=== PATIENT | male | born 1985 | race Caucasian/White ===

== ENCOUNTER 2017-05-28 21:59 | Emergency (ER) | payer OTHER ==
[~2017-05-28] VITALS: Ht 182.9 cm; Wt 78.3 kg
[~2017-05-28 21:59] MED LIST: ALBUAER19 INH; CYCL10TA6 PO; MONT1TAB3 PO; MULTTAB58 PO; NAPR500T3 PO; RISP1TAB68 PO; TEST1INJ3 IM
[2017-05-28 22:03] VITALS: Ht 182.9 cm; Wt 78.3 kg
[2017-05-28] MEDS ORDERED: ALBUT/IPRATROP 3MG/0.5MG NEB 3 ML VIAL INH STA (22:13)
--- NOTE | 2017-05-28 22:22 | EMERGENCY ROOM VISIT NOTE ---
History Report prepared by Erika: Korin Rojas Under the Supervision of: Dr. Fede Ly D.O. First contact with patient: 22:10 Chief Complaint: RESPIRATORY DISTRESS Stated Complaint: ASTHMA ATTACK History of Present Illness The patient is a 31 year old male who presents to the Emergency Room with complaints of persistent SOB starting 0500 today. The patient has a history of asthma. He woke up around 0500 today with SOB. He has tried several nebulizer treatments today to no significant relief. He also ran out of his inhaler. He does not have any other symptoms. He has not been on steroids recently. Source of History: patient Onset: 0500 Position: other (global) Quality: other (SOB) Timing: other (persistent) Note: Pt has no other symptoms. Review of Systems See HPI for pertinent positives and negatives. A total of ten systems were reviewed and were otherwise negative. Past Medical & Surgical Medical Problems: (1) Asthma (2) Pituitary abnormality (3) Testosterone deficiency Family History Diabetes mellitus Hypertension Social History Smoking Status: Current Every Day Smoker Alcohol Use: occasionally Marital Status: in relationship Housing Status: lives with significant other Occupation Status: employed Current/Historical Medications Scheduled Montelukast Sodium (Singulair), 10 MG PO DAILY Multiple Vitamin (Multivitamin), 1 TAB PO DAILY Risperidone (Risperdal), 1 MG PO HS Testosterone Enanthate (Testosterone Enanthate), 1 DOSE IM Q 3 WEEKS Scheduled PRN Albuterol Inhaler (Ventolin Inhaler), 2 PUFFS INH QID PRN for Wheezing Cyclobenzaprine Hcl (Flexeril), 10 MG PO TID PRN for MUSCLE SPASMS Naproxen (Naproxen), 500 MG PO BID PRN for Pain Allergies Coded Allergies: No Known Allergies (Unverified , 06/06/15) Physical Exam Vital Signs Date Time Temp Pulse Resp B/P (MAP) Pulse Ox O2 Delivery O2 Flow Rate FiO2 05/28/17 22:03 36.7 125 22 124/78 95 Room Air Physical Exam GENERAL: Awake, alert, well-appearing, in no distress HENT: Normocephalic, atraumatic. Oropharynx unremarkable. EYES: Normal conjunctiva. Sclera non-icteric. NECK: Supple. No nuchal rigidity. FROM. No JVD. RESPIRATORY: Decreased breath sounds bilaterally. CARDIAC: Regular rate, normal rhythm. Extremities warm and well perfused. Pulses equal. ABDOMEN: Soft, non-distended. No tenderness to palpation. No rebound or guarding. No masses. RECTAL: Deferred. MUSCULOSKELETAL: Chest examination reveals no tenderness. The back is symmetrical on inspection without obvious abnormality. There is no CVA tenderness to palpation. No joint edema. LOWER EXTREMITIES: Calves are equal size bilaterally and non-tender. No edema. No discoloration. NEURO: Normal sensorium. No sensory or motor deficits noted. SKIN: No rash or jaundice noted. Medical Decision & Procedures ER Provider Diagnostic Interpretation: X ray results as stated below per my interpretation and radiologist interpretation. CHEST ONE VIEW PORTABLE CLINICAL HISTORY: sob COMPARISON STUDY: 04/23/2014 FINDINGS: The cardiac and mediastinal contours are normal. There is no evidence of focal pulmonary consolidation. There is no evidence of failure. No pleural effusions are visualized.[ IMPRESSION: No active disease in the chest. Electronically signed by: Irwin Laws M.D. 05/28/2017 10:24 PM Dictated Date/Time: 05/28/2017 10:24 PM Medications Administered Medications (Trade) Dose Ordered Sig/Alberta Route Start Time Stop Time Status Last Admin Dose Admin Albuterol/ Ipratropium (Duoneb) 3 ml NOW STAT INH 05/28/17 22:13 05/28/17 22:15 DC 05/28/17 22:20 3 ML Prednisone (PredniSONE TAB) 60 mg NOW STAT PO 05/28/17 22:13 05/28/17 22:15 DC 05/28/17 22:20 60 MG ED Course 2211: The patient was evaluated in room C10. A complete history and physical exam was performed. 2213: Prednisone 60 mg PO, Duoneb 3 ml INH. 2249: I reevaluated the patient. Discussed results and discharge instructions: he verbalized understanding and agreement. The patient is ready for discharge. Medical Decision Differential diagnoses include but are not limited to; asthma, pneumonia, bronchitis, URI, reactive airway disease. Medication Reconcilliation Current Medication List: was personally reviewed by me Blood Pressure Screening Patient's blood pressure: Normal blood pressure Blood pressure disposition: Did not require urgent referral Impression Primary Impression: Asthma Scribe Attestation The scribe's documentation has been prepared under my direction and personally reviewed by me in its entirety. I confirm that the note above accurately reflects all work, treatment, procedures, and medical decision making performed by me. Departure Information Dispostion Home / Self-Care Prescriptions Prednisone (Prednisone) 50 Mg Tab 50 MG PO DAILY for 4 Days, TAB Prov: Fede Ly, DO 05/28/17 Albuterol Sulfate (ALBUTEROL SULFATE) 1.25 Mg/3 Ml Neb 1 VIAL NEB Q6 for 15 Days, #150 ML Prov: Fede Ly, DO 05/28/17 Albuterol Hfa (VENTOLIN HFA) 200 Puffs/94702 Mcg Aers 2-4 PUFFS INH Q6H, #1 Prov: Fede Ly, DO 05/28/17 Referrals Rob Anderson III, M.D. (PCP) Patient Instructions Asthma - [facility], COPD - [facility], Croup - [facility], My [facility] Work Instructions Return To Work: 1 day Lifting Limitations: none
--- NOTE | 2017-05-28 22:26 | DIAGNOSTIC IMAGING REPORT ---
CHEST ONE VIEW PORTABLE CLINICAL HISTORY: sob COMPARISON STUDY: 04/23/2014 FINDINGS: The cardiac and mediastinal contours are normal. There is no evidence of focal pulmonary consolidation. There is no evidence of failure. No pleural effusions are visualized.[ IMPRESSION: No active disease in the chest. Electronically signed by: Irwin Laws M.D. 05/28/2017 10:24 PM Dictated Date/Time: 05/28/2017 10:24 PM
[2017-05-28] MEDS ORDERED: VNTHFA/IN INH (22:55)
[2017-05-28] MEDS ORDERED: PRED50TA PO (22:55)
[2017-05-28] MEDS ORDERED: ALBU1.257 NEB (22:55)
[2017-05-28 23:06] VITALS: BP 124/75; PULSE 94; TEMP 36.7; O2SAT 96
== END 2017-05-28 23:07 | disposition home or self-care (01) ==
LOC: C.EDB 22:01 → C.EDC 23:07
DX: J45.909 Unspecified asthma, uncomplicated (principal); F17.200 Nicotine dependence, unspecified, uncomplicated; Z79.899 Other long term (current) drug therapy; Z83.3 Family history of diabetes mellitus; Z82.49 Family history of ischemic heart disease and other diseases of the circulatory system

== ENCOUNTER 2017-08-19 15:43 | Emergency (ER) | payer OTHER ==
[~2017-08-19] VITALS: Ht 182.9 cm; Wt 80.0 kg
[~2017-08-19 15:43] MED LIST changes: +VNTHFA/IN INH
[2017-08-19 15:46] VITALS: TEMP 36.7; Ht 182.9 cm; Wt 80.0 kg
[2017-08-19] MEDS ORDERED: KETOROLAC TROMETHAMINE 60 MG/2 ML VIAL IM STA (16:02)
[2017-08-19] MEDS ORDERED: METH4PAK PO (16:05)
[2017-08-19] MEDS ORDERED: TRAM-10 PO (16:05)
[2017-08-19] MEDS ORDERED: DEXAMETHASONE **PF** INJ 10 MG/ML VIAL IM ONE (16:15)
[2017-08-19 16:33] VITALS: BP 122/83; PULSE 92; O2SAT 97
--- NOTE | 2017-08-19 22:01 | EMERGENCY ROOM VISIT NOTE ---
History First contact with patient: 15:49 Chief Complaint: BACK PAIN Stated Complaint: LOWER BACK PAIN History of Present Illness The patient is a 32 year old male, history of Klinefelter syndrome, who presents to the Emergency Room with complaints of lower back pain radiating into the right buttock and thigh. The patient reports that the pain will occasionally radiate into his calf. The patient does report a prior history of back problems. 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 He denies any recent injuries to his back. He currently denies any bladder/bowel incontinence, saddle anesthesias or profound right lower extremity weakness. He rates his discomfort a 4 out of 10. The patient reports that he left his medical assistance lapse, and is hoping to have his insurance in place within the next few weeks so he can follow-up with his PCP. Review of Systems 10 system review was performed and was negative except for pertinent positives and negatives as indicated in history of present illness Past Medical/Surgical History Medical Problems: (1) Asthma (2) Pituitary abnormality (3) Testosterone deficiency Family History Diabetes mellitus Hypertension Social History Smoking Status: Current Every Day Smoker Alcohol Use: occasionally Marital Status: in relationship Housing Status: lives with significant other Occupation Status: employed Current/Historical Medications Scheduled Albuterol Hfa (Ventolin Hfa), 2-4 PUFFS INH Q6H Methylprednisolone (Medrol Dosepak), 0 PO DAILY Montelukast Sodium (Singulair), 10 MG PO DAILY Multiple Vitamin (Multivitamin), 1 TAB PO DAILY Risperidone (Risperdal), 1 MG PO HS Testosterone Enanthate (Testosterone Enanthate), 1 DOSE IM Q 3 WEEKS Scheduled PRN Albuterol Inhaler (Ventolin Inhaler), 2 PUFFS INH QID PRN for Wheezing Cyclobenzaprine Hcl (Flexeril), 10 MG PO TID PRN for MUSCLE SPASMS Naproxen (Naproxen), 500 MG PO BID PRN for Pain Tramadol (Ultram), 1-2 TAB PO Q4H PRN for Pain Physical Exam Vital Signs Date Time Temp Pulse Resp B/P (MAP) Pulse Ox O2 Delivery O2 Flow Rate FiO2 08/19/17 16:33 92 18 122/83 97 08/19/17 15:46 36.7 91 16 127/86 94 Room Air Physical Exam CONSTITUTIONAL: Healthy and well nourished. Alert and oriented X 3 with positive affect. Patient appears in mild discomfort. HEENT: Normocephalic, atraumatic. Pupils equal, round and reactive. NECK: Full active range of motion without discomfort. RESPIRATORY: Clear to auscultation bilaterally with no wheezing, crackles, rhonchi or stridor. CARDIOVASCULAR: Regular rate and rhythm with no murmurs, rubs or gallops. GASTROINTESTINAL: Bowel sounds present in all quadrants. Soft and nontender to palpation. MUSCULOSKELETAL: Examination shows mild tenderness to palpation of the right lower lumbar paraspinous muscle. No palpable rigidity noted. He has no focal tenderness through the central lumbar spine, SI joints or sciatic notch. Negative logroll. Negative sitting straight leg raise. Pedal pulses are intact. Ankle plantar/dorsiflexion strength is 5 out of 5 and symmetric bilaterally. INTEGUMENTARY: No rash or other significant dermatologic conditions noted. NEUROLOGIC: Right lower extremity is sensory intact. Medical Decision & Procedures Medications Administered Medications (Trade) Dose Ordered Sig/Alberta Route Start Time Stop Time Status Last Admin Dose Admin Ketorolac Tromethamine (Toradol Inj) 60 mg NOW STAT IM 08/19/17 16:02 08/19/17 16:03 DC 08/19/17 16:23 60 MG Dexamethasone Sodium Phosphate (Dexamethasone Inj Pf) 10 mg NOW ONCE IM 08/19/17 16:15 08/19/17 16:16 DC 08/19/17 16:22 10 MG ED Course Patient history and physical exam were performed. Nurse's notes were reviewed. Vital signs were reviewed and were normal. The patient was administered IM Toradol and Decadron. The patient was encouraged to alternate ibuprofen and Tylenol for pain. He was provided a prescription for a Medrol Dosepak to be started tomorrow afternoon. He was also provided a prescription for Ultram as needed for breakthrough pain. The patient reports that he cannot tolerate hydrocodone or oxycodone. The patient was instructed to follow-up with his PCP for further reevaluation and management. He was instructed to return to the emergency department for any concerning symptoms consistent with cauda equina syndrome. The patient was happy with plan of care, voice understanding of all discharge instructions, and rated his discomfort a 3 out of 10 at the conclusion my exam, which was shortly after receiving his IM medications. Medical Decision [place] Drug Monitoring Program Search Results: patient reviewed within database, no issues identified Medication Reconcilliation Current Medication List: was personally reviewed by me Blood Pressure Screening Patient's blood pressure: Normal blood pressure Impression Primary Impression: Right lumbar radiculitis Departure Information Dispostion Home / Self-Care Condition GOOD Prescriptions Methylprednisolone (MEDROL DOSEPAK) 4 Mg Humberto 0 PO DAILY, #1 PKT Prov: Braydon Cleary PA 08/19/17 Tramadol (Ultram) 50 Mg Tab 1-2 TAB PO Q4H Y for Pain, #15 TAB For Initial Treatment Prov: Braydon Cleary PA 08/19/17 Referrals Rob Anderson III, M.D. (PCP) Forms HOME CARE DOCUMENTATION FORM, IMPORTANT VISIT INFORMATION Patient Instructions My [facility] Additional Instructions Try to avoid heavy lifting or sitting for long periods of time. Take Medrol Dosepak as prescribed, next dose tomorrow afternoon. Ibuprofen 800 mg and/or Tylenol 1000 mg every 8 hours. You may also alternate these medications for more effective pain relief: Ibuprofen --4 HRS--> Tylenol --4 HRS--> ibuprofen --4 HRS--> Tylenol .... Ultram if needed for worse pain. Follow-up with your family doctor as needed if symptoms persist. Return to the emergency department for any progressively worsening pain, bladder /bowel difficulties, numbness of the inner thighs/pubic region or profound right lower extremity weakness. FOR WORK: Please excuse from work today, Sunday08/19/17. If possible, please allow frequent breaks until back symptoms improve.
== END 2017-08-19 16:34 | disposition home or self-care (01) ==
LOC: C.EDB 15:44 → C.EDD 16:34
DX: M54.16 Radiculopathy, lumbar region (principal); J45.909 Unspecified asthma, uncomplicated; Q98.4 Klinefelter syndrome, unspecified; F17.200 Nicotine dependence, unspecified, uncomplicated; E23.7 Disorder of pituitary gland, unspecified; Z83.3 Family history of diabetes mellitus; Z82.49 Family history of ischemic heart disease and other diseases of the circulatory system

== ENCOUNTER 2017-10-21 17:26 | Emergency (ER) | payer OTHER ==
[~2017-10-21] VITALS: Ht 182.9 cm; Wt 73.8 kg
[~2017-10-21 17:26] MED LIST changes: +NAPR-1231 PO; -NAPR500T3 PO; +TRAM-10 PO
[2017-10-21 17:30] VITALS: BP 109/70; TEMP 36.7; Ht 182.9 cm; Wt 73.8 kg
[2017-10-21] MEDS ORDERED: VNTHFA/IN INH (17:48)
[2017-10-21 18:10] VITALS: PULSE 70; O2SAT 99
--- NOTE | 2017-10-21 20:59 | EMERGENCY ROOM VISIT NOTE ---
ED Visit Note First contact with patient: 17:35 Chief Complaint: Back pain. History of Present Illness: Mr. Gutiérrez is a 32-year-old white male who ambulates into the ED complaining of lumbar back pain. Historically patient reports she intermittently has back pain but has never been evaluated for this. 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 Since that time his pain has been constant. Currently he reports he is having bilateral lumbar spine in the paraspinous muscles which is slightly more pronounced on the left than the right. He describes his pain as a cramping sensation. He rates his discomfort 6/10. His pain is radiating inferiorly into the lower aspect of the buttocks bilaterally. His pain worsens with flexion and extension of the waist and palpation of the paraspinous muscles. He has not identified any alleviating factors related to the pain. He reports he was using some ibuprofen earlier today with minimal relief of his discomfort. He denies any associated symptoms including fevers, chills, sweats, skin eruptions, skin color changes, abdominal pain, nausea, vomiting, diarrhea, constipation, rectal bleeding, black/tarry stools, genital paresthesias, bowel/bladder dysfunction, extremity weakness/numbness/tingling. Review of Systems: As noted above in history of present illness. 8 body systems were reviewed and found to be negative as noted above. Past Medical History: Asthma. Current Medications: Albuterol, Singulair. Allergies to Medications: Patient denies. Social History: Patient is currently employed; he lives with his girlfriend and feels safe in his home environment; he admits to tobacco use but denies alcohol use. Physical Examination: Vital Signs: Date Time Temp Pulse Resp B/P (MAP) Pulse Ox O2 Delivery O2 Flow Rate FiO2 10/21/17 18:10 70 18 99 10/21/17 17:30 36.7 88 20 109/70 100 Room Air GENERAL: 32-year-old male in mild to moderate distress due to pain, nontoxic- appearing, afebrile and hemodynamically stable. NEUROLOGICAL: Awake, alert and oriented to person, place a questions appropriately and following commands. Normal gait. Good hand eye coordination. No focal motor or sensory deficits. SKIN: Warm, dry and pink. No soft tissue eruptions or trauma noted. BACK: No tenderness over the bony thoracic and lumbar spines. Moderate tenderness in the left lumbar paraspinous musculature without palpable spasm. Minimal tenderness in the right lumbar paraspinous muscles without spasm. Decreased range of motion in flexion and extension at the waist but no decrease in motion and lateral bending and twisting. Negative straight leg raise test. No CVA tenderness. THORAX: Lungs sounds are clear to auscultation and equal bilaterally with symmetrical chest wall. No wheezing, rales or rhonchi. ABDOMEN: Flat, soft and nontender. Positive bowel sounds in all quadrants. No guarding, rigidity or organomegaly. LOWER EXTREMITIES: Moves extremities well on command and with purpose. 2+ patellar and Achilles deep tendon reflexes intact and equal bilaterally. 4/5 muscle strength in all movements of the hips, knees and ankles and equal bilaterally. He was able to distinguish light sensations to all dermatomes of the lower legs and feet bilaterally. ED Course: Patient is assessed as noted above. Patient's medication list was reviewed. Patient was offered pain medication and refused. Patient was educated about today's findings and instructed on his treatment plan ; he verbalized understanding and agreement with this plan. Clinical Impression: Lumbar back sprain. Decision-Making: Alejandra my differential diagnosis I considered muscle strain, muscle spasm, disc herniation and other causes. Disposition: Patient discharged home in stable condition; prior to departure he was reassessed and subjectively reported he was feeling the same and rated his discomfort 6/10. Plan: Patient was encouraged to continue his current medications as prescribed. Patient was encouraged alternate ibuprofen and acetaminophen every 3 hours as needed for persistent pain. Patient was encouraged to use ice on the area of pain 5-6 times a day for 30 minutes and once most pain has resolved and there was stiffness consider using heat. Patient was encouraged to follow-up with primary care provider if no better in 5 -6 days. Patient was signed off of work for 2 days. Patient was encouraged return the ED for worsening/uncontrolled pain, genital paresthesias, bowel and bladder dysfunction, lower extremity weakness/numbness/ tingling, abdominal pain or any new/concerning symptoms.
== END 2017-10-21 18:19 | disposition home or self-care (01) ==
LOC: C.EDB 17:28 → C.EDD 18:19
DX: S33.5XXA Sprain of ligaments of lumbar spine, initial encounter (principal); X50.0XXA Overexertion from strenuous movement or load, initial encounter; J45.909 Unspecified asthma, uncomplicated; Z72.0 Tobacco use

== ENCOUNTER 2018-11-09 10:02 | Inpatient (IN) ==
[2018-11-09 10:38] LABS: Basophils # (auto) 0.02 K/uL (0-0.2); Basophils % (auto) 0.3 %; Eosinophils # (auto) 0.01 K/uL (0-0.5); Eosinophils % (auto) 0.1 %; Hematocrit (blood only) 42.9 % (42-52); Hemoglobin 14.9 g/dL (14.0-18.0); Immature Granulocytes # (auto) 0.02 K/uL (0.00-0.02); Immature Granulocytes % (auto) 0.3 %; Lymphocytes % (auto) 17.8 %; Mean Corpuscular Hgb Conc 34.7 g/dL (32-36); Mean Platelet Volume 9.4 fL (7.4-10.4); Monocytes # (auto) 0.71 K/uL (0.11-0.59); Monocytes % (auto) 9.7 %; Neutrophils # (auto) 5.23 K/uL (1.4-6.5); Neutrophils % (auto) 71.8 %; Platelet Count 213 K/uL (130-400); RDW Coefficient of Variation 13.1 % (11.5-14.5); RDW Standard Deviation 45.9 fL (36.4-46.3); Red Blood Count 4.47 M/uL (4.7-6.1); White Blood Count 7.29 K/uL (4.8-10.8)
[2018-11-09 10:45] LABS: Albumin Level 4.5 gm/dl (3.4-5.0); BUN Creatinine Ratio 14.1 (10-20); Calcium 9.4 mg/dl (8.5-10.1); Creatinine Clr Calc Pharmacy 107.8 ml/min; Est GFR (African American) 104.7; Est GFR (Non-African American) 90.3; Magnesium 2.3 mg/dl (1.8-2.4); Potassium 3.9 mmol/L (3.5-5.1)
[2018-11-09 10:48] LABS: Albumin Globulin Ratio 1.2 (0.9-2); Bilirubin,Total 0.7 mg/dl (0.2-1); Globulin 3.8 gm/dl (2.5-4.0); Total Protein 8.3 gm/dl (6.4-8.2)
[2018-11-09 10:51] LABS: INR 1.1 (0.9-1.1); Prothrombin Time 10.9 Seconds (9.0-12.0)
--- NOTE | 2018-11-09 11:54 | Magnetic Resonance Report ---
Brain MRA HISTORY: left facial weakness sparing forehead TECHNIQUE: 3-D [id number] MRA of the brain was performed without contrast. COMPARISON STUDY: Head CT 11/08/2018. FINDINGS: Visualized intracranial internal carotid arteries, distal vertebral arteries, and basilar a rtery are widely patent. There is no significant stenosis, occlusion, or aneurysm seen within the syed ateral ACAs, MCAs, or grocery sacker. IMPRESSION: No significant stenosis, occlusion, or aneurysm within the [place]. Electronically signed by: Marlo Woodard M.D. 11/09/2018 11:53 AM
[2018-11-09] MEDS ORDERED: GADOBUTROL 30ML VIAL IV PRN (12:25)
--- NOTE | 2018-11-09 12:39 | Magnetic Resonance Report ---
NECK CTA HISTORY: left facial weakness sparing forehead TECHNIQUE: Multiaxial CT images of the neck were performed following the intravenous administration o f contrast to evaluate the major cervical vessels. Maximum intensity projection images were also obta ined. All measurements were calculated based on NASCET criteria. A dose lowering technique was utili zed adhering to the principles of ALARA. COMPARISON STUDY: None. FINDINGS: The aortic arch and proximal great vessels are widely patent. There is no significant sten osis, occlusion, or dissection identified within the bilateral common carotid, internal carotid, or v ertebral arteries. IMPRESSION: No significant stenosis, occlusion, or dissection identified within the carotid or vertebral arteries . Electronically signed by: Marlo Woodard M.D. 11/09/2018 12:37 PM
--- NOTE | 2018-11-09 12:47 | Magnetic Resonance Report ---
Brain MRI WITH AND WITHOUT CONTRAST HISTORY: left facial weakness sparing forehead TECHNIQUE: Multiplanar multisequence MRI of the brain was performed both before and after the intrave nous administration of contrast. COMPARISON STUDY: None. FINDINGS: There are no areas of restricted diffusion to suggest acute infarction. The midline structu res are intact. Small retention cysts within the left maxillary sinus. The orbits are unremarkable. T here is a single punctate focus of T2 hyperintensity seen within the periventricular and the left lat eral lobe. There is also a 3 mm T2 hyperintense enhancing focus within the mid melanie on image 7 of the postcontrast sequences. No additional areas of abnormal enhancement identified within the brain. The mastoid air cells are clear. The ventricles and sulci are within normal limits for age. There is no mass, hematoma, midline shift. The major vascular flow-voids at the skull base are well maintained. P ostcontrast sequences show no areas of abnormal enhancement. IMPRESSION: 1. No acute infarct. 2. A 3 mm T2 hyperintense enhancing focus within the mid melanie. This is nonspecific and could represen t a focus of demyelination, a small glioma, or subacute to chronic lacunar infarct. A small capillary telangectasia could also have this appearance but is considered less likely. One month brain MRI fol low-up is recommended to evaluate for stability/resolution. Electronically signed by: Marlo Woodard M.D. 11/09/2018 12:46 PM
[2018-11-09] MEDS ORDERED: ONDANSETRON INJ 2 MG/ML 2 ML VIAL ONE (13:16)
[2018-11-09] MEDS ORDERED: ONDANSETRON INJ 2 MG/ML 2 ML VIAL IV STA (13:19)
[2018-11-09] MEDS ORDERED: SODIUM CHLORIDE 0.9% 1000ML 1,000 ML IV ONE (13:35)
[2018-11-09] MEDS ORDERED: DiphenhydrAMINE HCL 50 MG/ML VIAL IV STA (13:35)
[2018-11-09] MEDS ORDERED: PROCHLORPERAZINE 10 MG in SYRINGE 8 ML IV ONE (13:35)
[2018-11-09] MEDS ORDERED: PROCHLORPERAZINE 5 MG/ML 2 ML VIAL ONE (13:45)
[2018-11-09 14:07] LABS: Total Protein CSF 52.4 mg/dl (15-45)
[2018-11-09 14:08] LABS: Appearance CSF Clear; CSF Count Tube # 3; CSF Xanthrochromic No xanthochromia; Color CSF Colorless
[2018-11-09 14:09] LABS: Mononuclear WBC CSF 96.7 %; Polynuclear WBC CSF 3.3 %; Red Blood Cell CSF (A) 18 /uL (0-); Red Blood Cell CSF (B) 16 /uL (0-); White Blood Cell CSF (B) 320 /uL (0-5)
[2018-11-09 14:11] LABS: White Blood Cell CSF (A) 340 /uL (0-5)
[2018-11-09] MEDS ORDERED: VANCOMYCIN HCL 1,750 MG in SODIUM CHLORIDE 0.9% 500 ML IV ONE (14:16)
[2018-11-09] MEDS ORDERED: VANCOMYCIN CONSULT ACTIVE PRN ×2 (14:16→16:17)
[2018-11-09] MEDS ORDERED: cefTRIAXone SODIUM 2,000 MG in DEXTROSE 5% 50 ML IV STA (14:16)
[2018-11-09] MEDS ORDERED: DEXAMETHASONE **PF** INJ 10 MG/ML VIAL IV STA (14:27)
[2018-11-09] MEDS ORDERED: ACYCLOVIR SOD 775 MG in DEXTROSE 5% 250 ML IV STA (14:29)
[2018-11-09] MEDS ORDERED: HYDROmorphone INJ 1 MG/ML SYRINGE IV STA (15:09)
--- NOTE | 2018-11-09 15:36 | History & Physical Report ---
Date of Service November 09, 2018 Assessment & Plan (1) Meningitis: (2) Bar's palsy: (3) Severe headache: This is a 33-year-old male who has a significant past medical history of asthma who presents to [facility] ED secondary to severe headache x3 days along with left facial droop x1 day. Patient initially presented to ED on 11/08 secondary to severe headache. In ED pt CBC and BMP relatively unremarkable, except for glucose 111 and NA 135 He underwent LP + 340 wbc, total protein elevated 52.4 Gram stain +many wbc but no organism seen Viral and lyme serologies pending MRA of head/neck negative for stenosis MRI brain concerning for T2 hyperintense enhanced focus of mid melanie 3mm ddx but not limited to [place] bacterial vs viral, MS, lyme disease, Demyelinating neurologic disease, CVA, admit to PCU Continue IV antibiotics Vancomycin, Rocephin, Ampicillin and Antiviral Acyclovir until culture returns IVF LR 125ml/hr obtain blood culture, ESR, CRP Received IV dexamethasone in ED will monitor response Consult ID Consult Neurology Continue CVA work up with echocardiogram, telemetry monitoring and neuro consult (4) T2 hyperintense foci present in melanie on magnetic resonance imaging: MRI: A 3 mm T2 hyperintense enhancing focus within the mid melanie. This is nonspecific and could represent a focus of demyelination, a small glioma, or subacute to chronic lacunar infarct. A small capillary telangectasia could also have this appearance but is considered less likely. One month brain MRI follow- up is recommended to evaluate for stability/resolution. oligoclonal bands ordered for CSF analysis Neurology consulted uncertain significance at this time will need repeat imaging in 4 weeks or per neurology (5) Thrush: possible thrush pt complains of sore/burning tongue treat with nystatin and monitor (6) Asthma: no acute exacerbation continue mometasone (7) DVT prophylaxis: SCDS/TEDS Disposition: to be deteremined Follow up: PCP Dr. Anderson, pt will also need appropriate follow up with Neurology and repeat MRI Patient was seen and examined in collaboration with Dr. Whittaker, please see addendum History of Present Illness Chief Complaint: Severe LEE x 3 days; L Facial drop x 1 day. Primary Care Provider: Rob Anderson MD This is a 33-year-old male who has a significant past medical history of asthma who presents to [facility] ED secondary to severe headache x3 days along with left facial droop x1 day. Patient initially presented to ED on 11/08 secondary to severe headache. Headache described as, "worst headache of my life." Headache would come and go, located mostly left temporal region, worse with lying flat or walking, improved with IV benadryl and compazine. Never had anything like this in past. Work up yesterday essentially unremarkable; however a LP and CTA was recommended, pt refused and signed out AMA. He returns today with continued Headache along with new onset L facial drop that has since progressed to complete numbness and inability to move entire left side of face. LEE similar in nature today rated 7/10. +Photophobia, L ear tinnitus, Sweats, Chills, nausea and emesis. Last episode of emesis was yesterday morning. Denies hemetemsis. Overall has decreased appetite and temperature was elevated at ED yesterday to 37.8. Further complains of sore tongue, "I think I have a yeast infection from my inhaler." He denies any lightheaded, dizziness, neck pain/stiffness, chest pain, sob, palpitations, abdominal pain, diarrhea, change in bowel or urinary habits. No recent illness or travel, no sick contacts or tick bites. Denies any past surgical history or significant family history. He smokes 1/2 pack daily and also smokes marijuana, last used 3 days ago. Denies E ABDOULAYE use. Allergies Allergy/AdvReac Type Severity Reaction Status Date / Time No Known Allergies Allergy Verified 11/09/18 10:59 Home Medications Home Medications Medication Instructions Recorded Confirmed Type albuterol sulfate 2 puff INHALATION Q6H PRN 03/26/18 11/09/18 History montelukast [Singulair] 10 mg PO DAILY 03/26/18 11/09/18 History mometasone-formoterol [Dulera] 2 puff INHALATION Q12H 11/09/18 11/09/18 History Past Med/Surg History Medical History No significant past surgical history (Chronic) Asthma (Chronic) Back pain with sciatica (Acute) Family History Other Cerebral aneurysm Social History Preferred Language: Lithuanian Communication Ability: Effective Protection Specialist Required: No Beliefs That Will Affect Care: None marital status: Current Living Situation: Spouse Feels Safe at Home: Yes Safety Concerns: Feels Safe At This Time Smoking Status: Current some day smoker Cigarettes Per Day: 10 Hx Alcohol Use: No Hx Substance Use: Yes substance use type: marijuana Last Used Substance Other:: 1x per month Review of Systems Review of Systems: As noted per HPI, 10 systems reviewed and negative unless noted above. Physical Exam Physical Exam: Gen: ill appearing, M, lying in R lateral decub position, appears in pain, answers questions approp, conversing easily Head: Normocephalic, Atraumatic, pain to palpation b/l temporal area, +L bells palsy, Eyes: Sclera normal, no conjunctival injection, PERRLA, EOMI, +photophobia ENT: Gross hearing intact, TMs visualized and normal, normal pharynx, mucous membranes moist Neck: supple, no adenopathy, No JVD, no bruit, Resp: Clear to auscultation b/l, no wheeze, rales, rhonchi. Normal insp/exp effort, no accessory muscle use CV: Regular rate, regular rhythm, no murmur, rub, gallop, or ectopy Abd: +BS x 4, soft, nontender, nondistended Musculoskeletal: moves extremities active rom x 4, strength intact, good resident assistant strength Extremities: No edema bilaterally Skin: warm, sweaty, moist, no rash, negative turgor, cap refill < 2sec Neuro: Alert and oriented x 3, speech normal but slowed, flat mood/affect, + Cran nerve 7 deficit, [place] palsy otherwise cran nerve 2-12 intact grossly : deferred Results & Data Vital Signs (Past 12 Hours) Vital Signs Temp Pulse Pulse Resp BP BP Pulse Ox 11/09/18 15:02 37.5 C 80 20 122/67 98 11/09/18 14:12 71 18 118/68 97 11/09/18 13:36 74 18 119/60 97 11/09/18 12:31 71 18 143/85 H 98 11/09/18 10:54 82 18 130/91 99 11/09/18 10:26 96 11/09/18 10:23 96 05/18/19 10:07 36.9 C 108 H 18 133/78 98 Laboratory Results Short CBC 11/09/18 Range/Units 10:20 WBC 7.29 (4.8-10.8) K/uL Hgb 14.9 (14.0-18.0) g/dL Hct 42.9 (42-52) % Plt Count 213 (130-400) K/uL BMP 11/09/18 10:20 Sodium 135 L Potassium 3.9 Chloride 103 Carbon Dioxide 25 BUN 15 Creatinine 1.08 Glucose 111 H Calcium 9.4 Liver Function 11/09/18 Range/Units 10:20 Total Bilirubin 0.7 (0.2-1) mg/dl AST 13 L (15-37) U/L ALT 26 (12-78) U/L Alkaline Phosphatase 86 (45-117) U/L Albumin 4.5 (3.4-5.0) gm/dl 11/09/18 11/09/18 11/09/18 Range/Units 13:29 13:29 13:29 WBC (4.8-10.8) K/uL RBC (4.7-6.1) M/uL Hgb (14.0-18.0) g/dL Hct (42-52) % MCV (80-100) fL MCH (25-34) pg MCHC (32-36) g/dL RDW Std Deviation (36.4-46.3) fL RDW Coeff of [place]ike (11.5-14.5) % Plt Count (130-400) K/uL MPV (7.4-10.4) fL Immature Gran % (Auto) % Neut % (Auto) % Lymph % (Auto) % [place] % (Auto) % Eos % (Auto) % Baso % (Auto) % Immature Gran # (Auto) (0.00-0.02) K/uL Neut # (Auto) (1.4-6.5) K/uL Lymph # (Auto) (1.2-3.4) K/uL [place] # (Auto) (0.11-0.59) K/uL Eos # (Auto) (0-0.5) K/uL Baso # (Auto) (0-0.2) K/uL ESR (0-14) mm/hr PT (9.0-12.0) Seconds INR (0.9-1.1) APTT (21.0-31.0) Seconds PTT Ratio Sodium (136-145) mmol/L Potassium (3.5-5.1) mmol/L Chloride (98-107) mmol/L Carbon Dioxide (21-32) mmol/L Anion Gap (3-11) BUN (7-18) mg/dl Creatinine (0.6-1.4) mg/dl Est Cr Clr Drug Dosing ml/min Est GFR ( Amer) Est GFR (Non-Af Amer) BUN/Creatinine Ratio (10-20) Glucose (70-99) mg/dl POC Glucose (70-99) Calcium (8.5-10.1) mg/dl Magnesium (1.8-2.4) mg/dl Total Bilirubin (0.2-1) mg/dl AST (15-37) U/L ALT (12-78) U/L Alkaline Phosphatase (45-117) U/L C-Reactive Protein Total Protein (6.4-8.2) gm/dl Albumin (3.4-5.0) gm/dl Globulin (2.5-4.0) gm/dl Albumin/Globulin Ratio (0.9-2) Fld Lyme DNA (PCR) CSF Appearance CSF Color Xanthrochromic CSF WBC (0-5) /uL CSF RBC (0-) /uL CSF Cell Count Tube # CSF Mononuclear WBCs % % CSF Polynuclear WBCs % % CSF Chemistry Tube # CSF Glucose (40-70) mg/dl CSF Total Protein CSF Lyme IgG (Immblot) CSF Lyme IgG Bands Det CSF Lyme IgM (Immblot) CSF Lyme IgM Bands Det CSF West [place] IgM Ab Lyme Specimen Source Lyme IgG (Western Blot) Cancelled Pending Lyme IgG 18 kDa Band Cancelled Pending Lyme IgG 23 kDa Band Cancelled Pending Lyme IgG 28 kDa Band Cancelled Pending Lyme IgG 30 kDa Band Cancelled Pending Lyme IgG 39 kDa Band Cancelled Pending Lyme IgG 41 kDa Band Cancelled Pending Lyme IgG 45 kDa Band Cancelled Pending Lyme IgG 58 kDa Band Cancelled Pending Lyme IgG 66 kDa Band Cancelled Pending Lyme IgG 93 kDa Band Cancelled Pending Lyme IgM (Western Blot) Cancelled Pending Lyme IgM 23 kDa Band Cancelled Pending Lyme IgM 39 kDa Band Cancelled Pending Lyme IgM 41 kDa Band Cancelled Pending Enterovirus Source Enterovirus RNA RT-PCR Herpes Virus Source Pending HSV I DNA PCR Pending HSV II DNA PCR Pending Blood Type Antibody Screen 11/09/18 11/09/18 11/09/18 Range/Units 13:29 13:29 13:29 WBC (4.8-10.8) K/uL RBC (4.7-6.1) M/uL Hgb (14.0-18.0) g/dL Hct (42-52) % MCV (80-100) fL MCH (25-34) pg MCHC (32-36) g/dL RDW Std Deviation (36.4-46.3) fL RDW Coeff of Heike (11.5-14.5) % Plt Count (130-400) K/uL MPV (7.4-10.4) fL Immature Gran % (Auto) % Neut % (Auto) % Lymph % (Auto) % [place] % (Auto) % Eos % (Auto) % Baso % (Auto) % Immature Gran # (Auto) (0.00-0.02) K/uL Neut # (Auto) (1.4-6.5) K/uL Lymph # (Auto) (1.2-3.4) K/uL [place] # (Auto) (0.11-0.59) K/uL Eos # (Auto) (0-0.5) K/uL Baso # (Auto) (0-0.2) K/uL ESR (0-14) mm/hr PT (9.0-12.0) Seconds INR (0.9-1.1) APTT (21.0-31.0) Seconds PTT Ratio Sodium (136-145) mmol/L Potassium (3.5-5.1) mmol/L Chloride (98-107) mmol/L Carbon Dioxide (21-32) mmol/L Anion Gap (3-11) BUN (7-18) mg/dl Creatinine (0.6-1.4) mg/dl Est Cr Clr Drug Dosing ml/min Est GFR ( Amer) Est GFR (Non-Af Amer) BUN/Creatinine Ratio (10-20) Glucose (70-99) mg/dl POC Glucose (70-99) Calcium (8.5-10.1) mg/dl Magnesium (1.8-2.4) mg/dl Total Bilirubin (0.2-1) mg/dl AST (15-37) U/L ALT (12-78) U/L Alkaline Phosphatase (45-117) U/L C-Reactive Protein Total Protein (6.4-8.2) gm/dl Albumin (3.4-5.0) gm/dl Globulin (2.5-4.0) gm/dl Albumin/Globulin Ratio (0.9-2) Fld Lyme DNA (PCR) Cancelled CSF Appearance Clear CSF Color Colorless Xanthrochromic No xanthochromia CSF WBC 340 H* (0-5) /uL CSF RBC 18 (0-) /uL CSF Cell Count Tube # 3 CSF Mononuclear WBCs % 96.7 % CSF Polynuclear WBCs % 3.3 % CSF Chemistry Tube # 1 CSF Glucose 50 (40-70) mg/dl CSF Total Protein 52.4 H CSF Lyme IgG (Immblot) CSF Lyme IgG Bands Det CSF Lyme IgM (Immblot) CSF Lyme IgM Bands Det CSF [place] IgM Ab Lyme Specimen Source Cancelled Lyme IgG (Western Blot) Lyme IgG 18 kDa Band Lyme IgG 23 kDa Band Lyme IgG 28 kDa Band Lyme IgG 30 kDa Band Lyme IgG 39 kDa Band Lyme IgG 41 kDa Band Lyme IgG 45 kDa Band Lyme IgG 58 kDa Band Lyme IgG 66 kDa Band Lyme IgG 93 kDa Band Lyme IgM (Western Blot) Lyme IgM 23 kDa Band Lyme IgM 39 kDa Band Lyme IgM 41 kDa Band Enterovirus Source Enterovirus RNA RT-PCR Herpes Virus Source HSV I DNA PCR HSV II DNA PCR Blood Type Antibody Screen 11/09/18 11/09/18 11/09/18 Range/Units 13:29 13:29 13:29 WBC (4.8-10.8) K/uL RBC (4.7-6.1) M/uL Hgb (14.0-18.0) g/dL Hct (42-52) % MCV (80-100) fL MCH (25-34) pg MCHC (32-36) g/dL RDW Std Deviation (36.4-46.3) fL RDW Coeff of [place]ike (11.5-14.5) % Plt Count (130-400) K/uL MPV (7.4-10.4) fL Immature Gran % (Auto) % Neut % (Auto) % Lymph % (Auto) % [place] % (Auto) % Eos % (Auto) % Baso % (Auto) % Immature Gran # (Auto) (0.00-0.02) K/uL Neut # (Auto) (1.4-6.5) K/uL Lymph # (Auto) (1.2-3.4) K/uL [place] # (Auto) (0.11-0.59) K/uL Eos # (Auto) (0-0.5) K/uL Baso # (Auto) (0-0.2) K/uL ESR (0-14) mm/hr PT (9.0-12.0) Seconds INR (0.9-1.1) APTT (21.0-31.0) Seconds PTT Ratio Sodium (136-145) mmol/L Potassium (3.5-5.1) mmol/L Chloride (98-107) mmol/L Carbon Dioxide (21-32) mmol/L Anion Gap (3-11) BUN (7-18) mg/dl Creatinine (0.6-1.4) mg/dl Est Cr Clr Drug Dosing ml/min Est GFR ( Amer) Est GFR (Non-Af Amer) BUN/Creatinine Ratio (10-20) Glucose (70-99) mg/dl POC Glucose (70-99) Calcium (8.5-10.1) mg/dl Magnesium (1.8-2.4) mg/dl Total Bilirubin (0.2-1) mg/dl AST (15-37) U/L ALT (12-78) U/L Alkaline Phosphatase (45-117) U/L C-Reactive Protein Total Protein (6.4-8.2) gm/dl Albumin (3.4-5.0) gm/dl Globulin (2.5-4.0) gm/dl Albumin/Globulin Ratio (0.9-2) Fld Lyme DNA (PCR) Pending CSF Appearance CSF Color Xanthrochromic CSF WBC (0-5) /uL CSF RBC (0-) /uL CSF Cell Count Tube # CSF Mononuclear WBCs % % CSF Polynuclear WBCs % % CSF Chemistry Tube # CSF Glucose (40-70) mg/dl CSF Total Protein Cancelled CSF Lyme IgG (Immblot) Pending CSF Lyme IgG Bands Det Pending CSF Lyme IgM (Immblot) Pending CSF Lyme IgM Bands Det Pending CSF [place] IgM Ab Pending Lyme Specimen Source Pending Lyme IgG (Western Blot) Lyme IgG 18 kDa Band Lyme IgG 23 kDa Band Lyme IgG 28 kDa Band Lyme IgG 30 kDa Band Lyme IgG 39 kDa Band Lyme IgG 41 kDa Band Lyme IgG 45 kDa Band Lyme IgG 58 kDa Band Lyme IgG 66 kDa Band Lyme IgG 93 kDa Band Lyme IgM (Western Blot) Lyme IgM 23 kDa Band Lyme IgM 39 kDa Band Lyme IgM 41 kDa Band Enterovirus Source Enterovirus RNA RT-PCR Herpes Virus Source HSV I DNA PCR HSV II DNA PCR Blood Type Antibody Screen 11/09/18 11/09/18 11/09/18 Range/Units 13:29 10:40 10:31 WBC (4.8-10.8) K/uL RBC (4.7-6.1) M/uL Hgb (14.0-18.0) g/dL Hct (42-52) % MCV (80-100) fL MCH (25-34) pg MCHC (32-36) g/dL RDW Std Deviation (36.4-46.3) fL RDW Coeff of [place] (11.5-14.5) % Plt Count (130-400) K/uL MPV (7.4-10.4) fL Immature Gran % (Auto) % Neut % (Auto) % Lymph % (Auto) % [place] % (Auto) % Eos % (Auto) % Baso % (Auto) % Immature Gran # (Auto) (0.00-0.02) K/uL Neut # (Auto) (1.4-6.5) K/uL Lymph # (Auto) (1.2-3.4) K/uL [place] # (Auto) (0.11-0.59) K/uL Eos # (Auto) (0-0.5) K/uL Baso # (Auto) (0-0.2) K/uL ESR (0-14) mm/hr PT (9.0-12.0) Seconds INR (0.9-1.1) APTT (21.0-31.0) Seconds PTT Ratio Sodium (136-145) mmol/L Potassium (3.5-5.1) mmol/L Chloride (98-107) mmol/L Carbon Dioxide (21-32) mmol/L Anion Gap (3-11) BUN (7-18) mg/dl Creatinine (0.6-1.4) mg/dl Est Cr Clr Drug Dosing ml/min Est GFR ( Amer) Est GFR (Non-Af Amer) BUN/Creatinine Ratio (10-20) Glucose (70-99) mg/dl POC Glucose 126 H (70-99) Calcium (8.5-10.1) mg/dl Magnesium (1.8-2.4) mg/dl Total Bilirubin (0.2-1) mg/dl AST (15-37) U/L ALT (12-78) U/L Alkaline Phosphatase (45-117) U/L C-Reactive Protein Total Protein (6.4-8.2) gm/dl Albumin (3.4-5.0) gm/dl Globulin (2.5-4.0) gm/dl Albumin/Globulin Ratio (0.9-2) Fld Lyme DNA (PCR) CSF Appearance CSF Color Xanthrochromic CSF WBC (0-5) /uL CSF RBC (0-) /uL CSF Cell Count Tube # CSF Mononuclear WBCs % % CSF Polynuclear WBCs % % CSF Chemistry Tube # CSF Glucose (40-70) mg/dl CSF Total Protein CSF Lyme IgG (Immblot) CSF Lyme IgG Bands Det CSF Lyme IgM (Immblot) CSF Lyme IgM Bands Det CSF [place] IgM Ab Lyme Specimen Source Lyme IgG (Western Blot) Lyme IgG 18 kDa Band Lyme IgG 23 kDa Band Lyme IgG 28 kDa Band Lyme IgG 30 kDa Band Lyme IgG 39 kDa Band Lyme IgG 41 kDa Band Lyme IgG 45 kDa Band Lyme IgG 58 kDa Band Lyme IgG 66 kDa Band Lyme IgG 93 kDa Band Lyme IgM (Western Blot) Lyme IgM 23 kDa Band Lyme IgM 39 kDa Band Lyme IgM 41 kDa Band Enterovirus Source Pending Enterovirus RNA RT-PCR Pending Herpes Virus Source HSV I DNA PCR HSV II DNA PCR Blood Type O Negative Antibody Screen NEGATIVE 11/09/18 11/09/18 11/09/18 Range/Units 10:20 10:20 10:20 WBC (4.8-10.8) K/uL RBC (4.7-6.1) M/uL Hgb (14.0-18.0) g/dL Hct (42-52) % MCV (80-100) fL MCH (25-34) pg MCHC (32-36) g/dL RDW Std Deviation (36.4-46.3) fL RDW Coeff of [place] (11.5-14.5) % Plt Count (130-400) K/uL MPV (7.4-10.4) fL Immature Gran % (Auto) % Neut % (Auto) % Lymph % (Auto) % [place] % (Auto) % Eos % (Auto) % Baso % (Auto) % Immature Gran # (Auto) (0.00-0.02) K/uL Neut # (Auto) (1.4-6.5) K/uL Lymph # (Auto) (1.2-3.4) K/uL [place] # (Auto) (0.11-0.59) K/uL Eos # (Auto) (0-0.5) K/uL Baso # (Auto) (0-0.2) K/uL ESR 25 H (0-14) mm/hr PT (9.0-12.0) Seconds INR (0.9-1.1) APTT (21.0-31.0) Seconds PTT Ratio Sodium 135 L (136-145) mmol/L Potassium 3.9 (3.5-5.1) mmol/L Chloride 103 (98-107) mmol/L Carbon Dioxide 25 (21-32) mmol/L Anion Gap 7.0 (3-11) BUN 15 (7-18) mg/dl Creatinine 1.08 (0.6-1.4) mg/dl Est Cr Clr Drug Dosing 107.8 ml/min Est GFR ( Amer) 104.7 Est GFR (Non-Af Amer) 90.3 BUN/Creatinine Ratio 14.1 (10-20) Glucose 111 H (70-99) mg/dl POC Glucose (70-99) Calcium 9.4 (8.5-10.1) mg/dl Magnesium 2.3 (1.8-2.4) mg/dl Total Bilirubin 0.7 (0.2-1) mg/dl AST 13 L (15-37) U/L ALT 26 (12-78) U/L Alkaline Phosphatase 86 (45-117) U/L C-Reactive Protein Pending Total Protein 8.3 H (6.4-8.2) gm/dl Albumin 4.5 (3.4-5.0) gm/dl Globulin 3.8 (2.5-4.0) gm/dl Albumin/Globulin Ratio 1.2 (0.9-2) Fld Lyme DNA (PCR) CSF Appearance CSF Color Xanthrochromic CSF WBC (0-5) /uL CSF RBC (0-) /uL CSF Cell Count Tube # CSF Mononuclear WBCs % % CSF Polynuclear WBCs % % CSF Chemistry Tube # CSF Glucose (40-70) mg/dl CSF Total Protein CSF Lyme IgG (Immblot) CSF Lyme IgG Bands Det CSF Lyme IgM (Immblot) CSF Lyme IgM Bands Det CSF [place] IgM Ab Lyme Specimen Source Lyme IgG (Western Blot) Lyme IgG 18 kDa Band Lyme IgG 23 kDa Band Lyme IgG 28 kDa Band Lyme IgG 30 kDa Band Lyme IgG 39 kDa Band Lyme IgG 41 kDa Band Lyme IgG 45 kDa Band Lyme IgG 58 kDa Band Lyme IgG 66 kDa Band Lyme IgG 93 kDa Band Lyme IgM (Western [place]ot) Lyme IgM 23 kDa Band Lyme IgM 39 kDa Band Lyme IgM 41 kDa Band Enterovirus Source Enterovirus RNA RT-PCR Herpes Virus Source HSV I DNA PCR HSV II DNA PCR Blood Type Antibody Screen 11/09/18 11/09/18 Range/Units 10:20 10:20 WBC 7.29 (4.8-10.8) K/uL RBC 4.47 L (4.7-6.1) M/uL Hgb 14.9 (14.0-18.0) g/dL Hct 42.9 (42-52) % MCV 96.0 (80-100) fL MCH 33.3 (25-34) pg MCHC 34.7 (32-36) g/dL RDW Std Deviation 45.9 (36.4-46.3) fL RDW Coeff of [place] 13.1 (11.5-14.5) % Plt Count 213 (130-400) K/uL MPV 9.4 (7.4-10.4) fL Immature Gran % (Auto) 0.3 % Neut % (Auto) 71.8 % Lymph % (Auto) 17.8 % [place] % (Auto) 9.7 % Eos % (Auto) 0.1 % Baso % (Auto) 0.3 % Immature Gran # (Auto) 0.02 (0.00-0.02) K/uL Neut # (Auto) 5.23 (1.4-6.5) K/uL Lymph # (Auto) 1.30 (1.2-3.4) K/uL [place] # (Auto) 0.71 H (0.11-0.59) K/uL Eos # (Auto) 0.01 (0-0.5) K/uL Baso # (Auto) 0.02 (0-0.2) K/uL ESR (0-14) mm/hr PT 10.9 (9.0-12.0) Seconds INR 1.1 (0.9-1.1) APTT 28.0 (21.0-31.0) Seconds PTT Ratio 1.0 Sodium (136-145) mmol/L Potassium (3.5-5.1) mmol/L Chloride (98-107) mmol/L Carbon Dioxide (21-32) mmol/L Anion Gap (3-11) BUN (7-18) mg/dl Creatinine (0.6-1.4) mg/dl Est Cr Clr Drug Dosing ml/min Est GFR ( Amer) Est GFR (Non-Af Amer) BUN/Creatinine Ratio (10-20) Glucose (70-99) mg/dl POC Glucose (70-99) Calcium (8.5-10.1) mg/dl Magnesium (1.8-2.4) mg/dl Total Bilirubin (0.2-1) mg/dl AST (15-37) U/L ALT (12-78) U/L Alkaline Phosphatase (45-117) U/L C-Reactive Protein Total Protein (6.4-8.2) gm/dl Albumin (3.4-5.0) gm/dl Globulin (2.5-4.0) gm/dl Albumin/Globulin Ratio (0.9-2) Fld Lyme DNA (PCR) CSF Appearance CSF Color Xanthrochromic CSF WBC (0-5) /uL CSF RBC (0-) /uL CSF Cell Count Tube # CSF Mononuclear WBCs % % CSF Polynuclear WBCs % % CSF Chemistry Tube # CSF Glucose (40-70) mg/dl CSF Total Protein CSF Lyme IgG (Immblot) CSF Lyme IgG Bands Det CSF Lyme IgM (Immblot) CSF Lyme IgM Bands Det CSF [place] IgM Ab Lyme Specimen Source Lyme IgG (Western Blot) Lyme IgG 18 kDa Band Lyme IgG 23 kDa Band Lyme IgG 28 kDa Band Lyme IgG 30 kDa Band Lyme IgG 39 kDa Band Lyme IgG 41 kDa Band Lyme IgG 45 kDa Band Lyme IgG 58 kDa Band Lyme IgG 66 kDa Band Lyme IgG 93 kDa Band Lyme IgM (Western Blot) Lyme IgM 23 kDa Band Lyme IgM 39 kDa Band Lyme IgM 41 kDa Band Enterovirus Source Enterovirus RNA RT-PCR Herpes Virus Source HSV I DNA PCR HSV II DNA PCR Blood Type Antibody Screen Diagnostic Findings Brain MRI: 1. No acute infarct. 2. A 3 mm T2 hyperintense enhancing focus within the mid melanie. This is nonspecific and could represent a focus of demyelination, a small glioma, or subacute to chronic lacunar infarct. A small capillary telangectasia could also have this appearance but is considered less likely. One month brain MRI follow- up is recommended to evaluate for stability/resolution. Head/Neck MRA: IMPRESSION: No significant stenosis, occlusion, or aneurysm within the [place]. IMPRESSION: No significant stenosis, occlusion, or dissection identified within the carotid or vertebral arteries. Medications Administered Gadobutrol (Gadavist 30ml) 9 ml IV ONCE PRN PRN Reason: Interaction Checking Stop: 11/13/18 12:24 Last Admin: 11/09/18 12:25 Dose: 9 ml Documented by: [id number] Discontinued Medications Dexamethasone Sodium Phosphate (Decadron Pf) 10 mg IV NOW STA Stop: 11/09/18 14:28 Last Admin: 11/09/18 14:56 Dose: 10 mg Documented by: [id number] Diphenhydramine HCl (Benadryl) 25 mg IV NOW STA Stop: 11/09/18 13:36 Last Admin: 11/09/18 13:48 Dose: 25 mg Documented by: [id number] Hydromorphone HCl (Dilaudid) 1 mg IV NOW STA Stop: 11/09/18 15:10 Last Admin: 11/09/18 15:19 Dose: 1 mg Documented by: [id number] Prochlorperazine 10 mg/ (Syringe) 10 mls @ 5 mls/min IV ONE ONE Stop: 11/09/18 13:36 Last Admin: 11/09/18 13:49 Dose: Not Given Documented by: [id number] Sodium Chloride (Nss 1000ml) 1,000 mls @ 999 mls/hr IV .Q1H1M ONE Stop: 11/09/18 14:35 Last Infusion: 11/09/18 14:51 Dose: 0 mls/hr Documented by: [id number] Admin: 11/09/18 13:48 Dose: 999 mls/hr Documented by: [id number] Ceftriaxone Sodium 2,000 mg/ (Dextrose) 70 mls @ 100 mls/hr IV NOW STA Stop: 11/09/18 14:57 Last Admin: 11/09/18 14:56 Dose: 100 mls/hr Documented by: [id number] Acyclovir Sodium 775 mg/ (Dextrose) 265.5 mls @ 250 mls/hr IV NOW STA Stop: 11/09/18 15:32 Last Admin: 11/09/18 14:56 Dose: 250 mls/hr Documented by: [id number] Ondansetron HCl (Zofran) Confirm Administered Dose 4 mg .ROUTE .STK-MED ONE Stop: 11/09/18 13:17 Last Admin: 11/09/18 13:17 Dose: 4 mg Documented by: [id number] Ondansetron HCl (Zofran) 4 mg IV NOW STA Stop: 11/09/18 13:20 Last Admin: 11/09/18 13:20 Dose: Not Given Documented by: [id number] Prochlorperazine (Compazine) Confirm Administered Dose 10 mg .ROUTE .STK-MED ONE Stop: 11/09/18 13:46 Last Admin: 11/09/18 13:48 Dose: 10 mg Documented by: [id number] ECG Rate (beats per minute): 94 Rhythm: normal sinus Code Status & VTE Plan Code Status Full Code VTE Prophylaxis Plan VTE Prophylaxis will be ordered: Yes Supervising Physician Co-Signing Physician Notes Attending addendum: Patient seen and examined, care coordinated with Carla Schultz PA-C This is a 33-year-old male who was seen at the ER yesterday 019 with intractable headache, fever pt refused lumbar puncture, refused hospital admission, left AGAINST MEDICAL ADVICE presented to ER with worsening of headache Lumbar puncture shows CSF elevated WBC MR I of brain showed T2 hyperintense image on left melanie area suggestive of acute versus subacute infarct versus demyelinating disease Patient will be admitted to telemetry floor, started with empiric antibiotic with IV vancomycin/Rocephin, acyclovir, ampicillin: For Listeria coverage Given dose of dexamethasone in the ER ID evaluation requested Neurology consulted MRI findings discussed with neurology Neurology recommends continue with empiric antibiotic for treatment of meningitis, patient's neurological deficit/presentation possibly could be infectious origin, MRI need to be repeated in 4 to 6 weeks to see resolution of the change After meningitis/infection treated effectively Intractable headache: Possible secondary to meningitis CT head shows no evidence of intracranial hemorrhage, no acute CVA MRI of brain showed possible demyelinating intracranial disease Neuro check, pain control, neurologic input requested Report of MRI scan discussed with neurology, recommends continue treatment for meningitis, as change of the MRI scan could be secondary to infectious etiology No aspirin ordered as patient just had lumbar puncture done Repeat MRI scan in a month history of tobacco abuse/marijuana abuse: Smoking cessation counseling provided, Nicotine patch if needed, at present patient declines Ordered for urine tox screen CODE STATUS: Full code DVT prophylaxis: Low risk, SCD and teds, patient is encouraged to ambulate Disposition: Expected to be discharged home when medically stable Please refer to further documentation by Carla Morataya PA-C for discussion of other chronic issues Mavis Whittaker MD
[2018-11-09] MEDS ORDERED: AMPICILLIN 2,000 MG in SODIUM CHLOR 0.9% AD-VAN 100 ML IV SCH ×2 (16:00→18:00)
--- NOTE | 2018-11-09 16:08 | Emergency Department Note ---
Entered by Tayler Arriaga acting as a scribe for History of Present Illness General Chief complaint: Neuro Symptoms/Deficit Stated complaint: L SIDE OF FACE NUMB Source: patient and family History of Present Illness Provider complaint: left-sided facial numbness Onset (ago): hour(s) (0900 this morning) Location: face and left Quality: + other (numbness) Associated symptoms: + denies other symptoms (denies visual problems, trouble ambulating, difficulty finding words, numbness or weakness to one side of his body), + diaphoresis, + fever/chills (subjective fever) and + other (tongue pain); no headaches The patient is a 33 year old male who presents to the Emergency Department with complaints of left-sided facial numbness beginning at 0900 this morning. He also reports that he has been sweating all night. He reports that he drank soda this morning and that it fell out of his mouth as he was drinking. He looked in the mirror and noticed that he had left facial weakness. The patient states that he was seen here yesterday for a headache but states that he no longer has a headache. He states that he had a went away shortly after he was discharged. He reports that he slept from 1800 last night to 0900 this morning. He denies having numbness or weakness to his extremities. He also denies having visual problems, trouble ambulating, or difficulty finding words. The patient reports having tongue pain but states that he has a lesion. His states that the patient had a subjective fever last night. He states that his grandfather had a brain aneurysm at the age of 73. He states that he smokes. Home Medications Home Medications Medication Instructions Recorded Confirmed Type albuterol sulfate 2 puff INHALATION Q6H PRN 03/26/18 11/09/18 History montelukast [Singulair] 10 mg PO DAILY 03/26/18 11/09/18 History mometasone-formoterol [Dulera] 2 puff INHALATION Q12H 11/09/18 11/09/18 History Allergies Allergy/AdvReac Type Severity Reaction Status Date / Time No Known Allergies Allergy Verified 11/09/18 10:59 Past Med/Surg History Medical History No significant past surgical history (Chronic) Asthma (Chronic) Back pain with sciatica (Acute) Family History Other Cerebral aneurysm Social History Preferred Language: Swedish Communication Ability: Effective marital status: Feels Safe at Home: Yes Smoking Status: Current every day smoker Hx Alcohol Use: No Hx Substance Use: Yes substance use type: marijuana Last Used Substance Other:: 3 days ago Review of Systems See HPI for pertinent positives & negatives. and A total of 10 systems reviewed and were otherwise negative Physical Exam Vital Signs Vital Signs - 24 hr 11/09/18 10:07 11/09/18 10:23 11/09/18 10:26 Temperature 36.9 C Temperature Source Oral Sepsis Recent Fever Within 48 Hours No Sepsis New/Unexplained Change in Mental Status No Sepsis Action Taken by Nursing No Action Required Pulse Rate 108 H Pulse Rate [Apical] Pulse Rhythm [Apical] Pulse Strength [Apical] Respiratory Rate 18 Respiratory Effort / Characteristics Respiratory Depth Normal Respiratory Pattern Blood Pressure 133/78 Blood Pressure [Right Arm] Blood Pressure Mean 96 Blood Pressure Mean [Right Arm] Blood Pressure Position [Right Arm] Pulse Oximetry 98 96 96 Oxygen Delivery Method Room Air Room Air Room Air 11/09/18 10:54 11/09/18 12:31 11/09/18 13:36 Temperature Temperature Source Sepsis Recent Fever Within 48 Hours Sepsis New/Unexplained Change in Mental Status Sepsis Action Taken by Nursing Pulse Rate Pulse Rate [Apical] 82 71 74 Pulse Rhythm [Apical] Regular Pulse Strength [Apical] Respiratory Rate 18 18 18 Respiratory Effort / Characteristics Respiratory Depth Normal Normal Normal Respiratory Pattern Blood Pressure Blood Pressure [Right Arm] 130/91 143/85 H 119/60 Blood Pressure Mean Blood Pressure Mean [Right Arm] 104 104 79 Blood Pressure Position [Right Arm] Sitting Pulse Oximetry 99 98 97 Oxygen Delivery Method Room Air Room Air Room Air 11/09/18 14:12 11/09/18 15:02 11/09/18 15:30 Temperature 37.5 C Temperature Source Oral Sepsis Recent Fever Within 48 Hours Sepsis New/Unexplained Change in Mental Status Sepsis Action Taken by Nursing Pulse Rate Pulse Rate [Apical] 71 80 73 Pulse Rhythm [Apical] Regular Pulse Strength [Apical] Normal Respiratory Rate 18 20 16 Respiratory Effort / Characteristics Non-Labored Non-Labored Spontaneous Respiratory Depth Normal Normal Normal Respiratory Pattern Regular Blood Pressure Blood Pressure [Right Arm] 118/68 122/67 111/60 Blood Pressure Mean Blood Pressure Mean [Right Arm] 84 85 77 Blood Pressure Position [Right Arm] Pulse Oximetry 97 98 94 Oxygen Delivery Method Room Air Room Air 11/09/18 15:47 Temperature Temperature Source Sepsis Recent Fever Within 48 Hours Sepsis New/Unexplained Change in Mental Status Sepsis Action Taken by Nursing Pulse Rate 73 Pulse Rate [Apical] Pulse Rhythm [Apical] Pulse Strength [Apical] Respiratory Rate 16 Respiratory Effort / Characteristics Respiratory Depth Respiratory Pattern Blood Pressure 111/60 Blood Pressure [Right Arm] Blood Pressure Mean Blood Pressure Mean [Right Arm] Blood Pressure Position [Right Arm] Pulse Oximetry 94 Oxygen Delivery Method Room Air Constitutional: Vital signs reviewed. Eyes: Pupils are equal round reactive to light. Conjunctiva are noninjected. ENT: Pharynx is clear without erythema or exudate. Slight erythema to the left tip of the tongue. No vesicular lesions. Mucous membranes are moist. Neck supple without meningeal signs. Respiratory: Clear to auscultation bilaterally. Breath sounds are equal bilaterally. Cardiovascular: Regular rate and rhythm. No rubs or gallops. GI: Soft, nondistended and nontender. Bowel sounds are present. Musculoskeletal: No peripheral edema. No lower extremity tenderness. Integumentary: No cyanosis. No petechiae or purpura. No vesicles to the face. Neurological: The patient is awake and alert. Cranial nerves II-XII are intact, except for left facial droop sparing the forehead. Motor is 5 out of 5 all extremities. Sensation is intact to light touch all extremities. Normal speech. Psychiatric: Normal affect. Procedures Free Text Procedures Lumbar Puncture Indication: Fever and headache. Verbal consent was obtained after the risks and benefits were explained, including but not limited to headache, bleeding/clotting, scarring, infection, pain, and bone/joint/nerve damage. At this time, the risks of the procedure are less than the risks of NOT performing the procedure. A time out was taken and the correct patient and site identified. The patient was placed in the sitting position and the back was prepped with betadine and draped in the standard fashion. The L3 intervertebral space was identified, anesthetized locally with 1% lidocaine without epinephrine, and the spinal needle was inserted through the skin with the bevel parallel to the dural fibers. The needle was carefully advanced into the lumbar cistern and 4 tubes of clear CSF was obtained. The stylet was replaced and the needle was removed. A bandaid was placed and the patient was placed in the supine position. The patient tolerated the procedure w ell and there were no complications. Course 1016: The patient was evaluated in room A12B. A history and physical were performed. 1029: I discussed the patient's case with Dr. Garner-Stroke Neurology Juanita who agrees with an MR of the brain and an MRA of the head and neck. If that is negative then he would recommend doing an LP. 1300: The patient developed a headache. 1320: I performed a lumbar puncture on the patient. 1422: I updated the patient and examined him. He has less movement raising the left eyebrow. He verbalized agreement and understanding of the treatment plan. 1424: I discussed the patient's case with Carla Gray who will evaluate the patient for further management. She said to give the patient Decadron and Acyclovir. Consultations Consultation #1: Dr. Garner-Stroke Neurology Juanita Time: 10:29 Consultation #2: Carla Gray Time: 14:24 Administered Medications Gadobutrol (Gadavist 30ml) 9 ml IV ONCE PRN PRN Reason: Interaction Checking Stop: 11/13/18 12:24 Last Admin: 11/09/18 12:25 Dose: 9 ml Documented by: [id number] Discontinued Medications Dexamethasone Sodium Phosphate (Decadron Pf) 10 mg IV NOW STA Stop: 11/09/18 14:28 Last Admin: 11/09/18 14:56 Dose: 10 mg Documented by: [id number] Diphenhydramine HCl (Benadryl) 25 mg IV NOW STA Stop: 11/09/18 13:36 Last Admin: 11/09/18 13:48 Dose: 25 mg Documented by: [id number] Hydromorphone HCl (Dilaudid) 1 mg IV NOW STA Stop: 11/09/18 15:10 Last Admin: 11/09/18 15:19 Dose: 1 mg Documented by: [id number] Prochlorperazine 10 mg/ (Syringe) 10 mls @ 5 mls/min IV ONE ONE Stop: 11/09/18 13:36 Last Admin: 11/09/18 13:49 Dose: Not Given Documented by: [id number] Sodium Chloride (Nss 1000ml) 1,000 mls @ 999 mls/hr IV .Q1H1M ONE Stop: 11/09/18 14:35 Last Infusion: 11/09/18 14:51 Dose: 0 mls/hr Documented by: [id number] Admin: 11/09/18 13:48 Dose: 999 mls/hr Documented by: [id number] Ceftriaxone Sodium 2,000 mg/ (Dextrose) 70 mls @ 100 mls/hr IV NOW STA Stop: 11/09/18 14:57 Last Infusion: 11/09/18 15:40 Dose: 0 mls/hr Documented by: [id number] Admin: 11/09/18 14:56 Dose: 100 mls/hr Documented by: [id number] Acyclovir Sodium 775 mg/ (Dextrose) 265.5 mls @ 250 mls/hr IV NOW STA Stop: 11/09/18 15:32 Last Admin: 11/09/18 14:56 Dose: 250 mls/hr Documented by: [id number] Ondansetron HCl (Zofran) Confirm Administered Dose 4 mg .ROUTE .STK-MED ONE Stop: 11/09/18 13:17 Last Admin: 11/09/18 13:17 Dose: 4 mg Documented by: [id number] Ondansetron HCl (Zofran) 4 mg IV NOW STA Stop: 11/09/18 13:20 Last Admin: 11/09/18 13:20 Dose: Not Given Documented by: [id number] Prochlorperazine (Compazine) Confirm Administered Dose 10 mg .ROUTE .STK-MED ONE Stop: 11/09/18 13:46 Last Admin: 11/09/18 13:48 Dose: 10 mg Documented by: [id number] Medical Decision Making Differential Diagnosis Differentials include Bar's Palsy, cerebral aneurysm, CVA, ICH, and Lyme Disease. Medical Records Attestation: I reviewed the patient's medical records. I did perform a limited focused review of portions of the patient's old chart on the electronic medical record. The patient was seen here yesterday by myself. He left AMA refusing LP and CT angiogram for the worst headache of his left and a low grade temperature. Home Medications Current Medication List: was personally reviewed by me Laboratory Data Attestation: I reviewed the patient's lab results. Result diagrams: 11/09/18 10:20 11/09/18 10:20 Lab Results 11/09/18 11/09/18 11/09/18 Range/Units 10:20 10:20 10:20 WBC 7.29 (4.8-10.8) K/uL RBC 4.47 L (4.7-6.1) M/uL Hgb 14.9 (14.0-18.0) g/dL Hct 42.9 (42-52) % MCV 96.0 (80-100) fL MCH 33.3 (25-34) pg MCHC 34.7 (32-36) g/dL RDW Std Deviation 45.9 (36.4-46.3) fL RDW Coeff of Heike 13.1 (11.5-14.5) % Plt Count 213 (130-400) K/uL MPV 9.4 (7.4-10.4) fL Immature Gran % (Auto) 0.3 % Neut % (Auto) 71.8 % Lymph % (Auto) 17.8 % [place] % (Auto) 9.7 % Eos % (Auto) 0.1 % Baso % (Auto) 0.3 % Immature Gran # (Auto) 0.02 (0.00-0.02) K/uL Neut # (Auto) 5.23 (1.4-6.5) K/uL Lymph # (Auto) 1.30 (1.2-3.4) K/uL [place] # (Auto) 0.71 H (0.11-0.59) K/uL Eos # (Auto) 0.01 (0-0.5) K/uL Baso # (Auto) 0.02 (0-0.2) K/uL ESR (0-14) mm/hr PT 10.9 (9.0-12.0) Seconds INR 1.1 (0.9-1.1) APTT 28.0 (21.0-31.0) Seconds PTT Ratio 1.0 Sodium 135 L (136-145) mmol/L Potassium 3.9 (3.5-5.1) mmol/L Chloride 103 (98-107) mmol/L Carbon Dioxide 25 (21-32) mmol/L Anion Gap 7.0 (3-11) BUN 15 (7-18) mg/dl Creatinine 1.08 (0.6-1.4) mg/dl Est Cr Clr Drug Dosing 107.8 ml/min Est GFR ( Amer) 104.7 Est GFR (Non-Af Amer) 90.3 BUN/Creatinine Ratio 14.1 (10-20) Glucose 111 H (70-99) mg/dl POC Glucose (70-99) Calcium 9.4 (8.5-10.1) mg/dl Magnesium 2.3 (1.8-2.4) mg/dl Total Bilirubin 0.7 (0.2-1) mg/dl AST 13 L (15-37) U/L ALT 26 (12-78) U/L Alkaline Phosphatase 86 (45-117) U/L C-Reactive Protein (0-0.29) mg/dl Total Protein 8.3 H (6.4-8.2) gm/dl Albumin 4.5 (3.4-5.0) gm/dl Globulin 3.8 (2.5-4.0) gm/dl Albumin/Globulin Ratio 1.2 (0.9-2) Fld Lyme DNA (PCR) CSF Appearance CSF Color Xanthrochromic CSF WBC (0-5) /uL CSF RBC (0-) /uL CSF Cell Count Tube # CSF Mononuclear WBCs % % CSF Polynuclear WBCs % % CSF Chemistry Tube # CSF Glucose (40-70) mg/dl CSF Total Protein Lyme Specimen Source Lyme IgG (Western Blot) Lyme IgG 18 kDa Band Lyme IgG 23 kDa Band Lyme IgG 28 kDa Band Lyme IgG 30 kDa Band Lyme IgG 39 kDa Band Lyme IgG 41 kDa Band Lyme IgG 45 kDa Band Lyme IgG 58 kDa Band Lyme IgG 66 kDa Band Lyme IgG 93 kDa Band Lyme IgM (Western Blot) Lyme IgM 23 kDa Band Lyme IgM 39 kDa Band Lyme IgM 41 kDa Band Blood Type Antibody Screen 11/09/18 11/09/18 11/09/18 Range/Units 10:20 10:20 10:31 WBC (4.8-10.8) K/uL RBC (4.7-6.1) M/uL Hgb (14.0-18.0) g/dL Hct (42-52) % MCV (80-100) fL MCH (25-34) pg MCHC (32-36) g/dL RDW Std Deviation (36.4-46.3) fL RDW Coeff of Heike (11.5-14.5) % Plt Count (130-400) K/uL MPV (7.4-10.4) fL Immature Gran % (Auto) % Neut % (Auto) % Lymph % (Auto) % [place] % (Auto) % Eos % (Auto) % Baso % (Auto) % Immature Gran # (Auto) (0.00-0.02) K/uL Neut # (Auto) (1.4-6.5) K/uL Lymph # (Auto) (1.2-3.4) K/uL [place] # (Auto) (0.11-0.59) K/uL Eos # (Auto) (0-0.5) K/uL Baso # (Auto) (0-0.2) K/uL ESR 25 H (0-14) mm/hr PT (9.0-12.0) Seconds INR (0.9-1.1) APTT (21.0-31.0) Seconds PTT Ratio Sodium (136-145) mmol/L Potassium (3.5-5.1) mmol/L Chloride (98-107) mmol/L Carbon Dioxide (21-32) mmol/L Anion Gap (3-11) BUN (7-18) mg/dl Creatinine (0.6-1.4) mg/dl Est Cr Clr Drug Dosing ml/min Est GFR ( Amer) Est GFR (Non-Af Amer) BUN/Creatinine Ratio (10-20) Glucose (70-99) mg/dl POC Glucose 126 H (70-99) Calcium (8.5-10.1) mg/dl Magnesium (1.8-2.4) mg/dl Total Bilirubin (0.2-1) mg/dl AST (15-37) U/L ALT (12-78) U/L Alkaline Phosphatase (45-117) U/L C-Reactive Protein 0.68 H (0-0.29) mg/dl Total Protein (6.4-8.2) gm/dl Albumin (3.4-5.0) gm/dl Globulin (2.5-4.0) gm/dl Albumin/Globulin Ratio (0.9-2) Fld Lyme DNA (PCR) CSF Appearance CSF Color Xanthrochromic CSF WBC (0-5) /uL CSF RBC (0-) /uL CSF Cell Count Tube # CSF Mononuclear WBCs % % CSF Polynuclear WBCs % % CSF Chemistry Tube # CSF Glucose (40-70) mg/dl CSF Total Protein Lyme Specimen Source Lyme IgG (Western Blot) Lyme IgG 18 kDa Band Lyme IgG 23 kDa Band Lyme IgG 28 kDa Band Lyme IgG 30 kDa Band Lyme IgG 39 kDa Band Lyme IgG 41 kDa Band Lyme IgG 45 kDa Band Lyme IgG 58 kDa Band Lyme IgG 66 kDa Band Lyme IgG 93 kDa Band Lyme IgM (Western Blot) Lyme IgM 23 kDa Band Lyme IgM 39 kDa Band Lyme IgM 41 kDa Band Blood Type Antibody Screen 11/09/18 11/09/18 11/09/18 Range/Units 10:40 13:29 13:29 WBC (4.8-10.8) K/uL RBC (4.7-6.1) M/uL Hgb (14.0-18.0) g/dL Hct (42-52) % MCV (80-100) fL MCH (25-34) pg MCHC (32-36) g/dL RDW Std Deviation (36.4-46.3) fL RDW Coeff of Heike (11.5-14.5) % Plt Count (130-400) K/uL MPV (7.4-10.4) fL Immature Gran % (Auto) % Neut % (Auto) % Lymph % (Auto) % [place] % (Auto) % Eos % (Auto) % Baso % (Auto) % Immature Gran # (Auto) (0.00-0.02) K/uL Neut # (Auto) (1.4-6.5) K/uL Lymph # (Auto) (1.2-3.4) K/uL [place] # (Auto) (0.11-0.59) K/uL Eos # (Auto) (0-0.5) K/uL Baso # (Auto) (0-0.2) K/uL ESR (0-14) mm/hr PT (9.0-12.0) Seconds INR (0.9-1.1) APTT (21.0-31.0) Seconds PTT Ratio Sodium (136-145) mmol/L Potassium (3.5-5.1) mmol/L Chloride (98-107) mmol/L Carbon Dioxide (21-32) mmol/L Anion Gap (3-11) BUN (7-18) mg/dl Creatinine (0.6-1.4) mg/dl Est Cr Clr Drug Dosing ml/min Est GFR ( Amer) Est GFR (Non-Af Amer) BUN/Creatinine Ratio (10-20) Glucose (70-99) mg/dl POC Glucose (70-99) Calcium (8.5-10.1) mg/dl Magnesium (1.8-2.4) mg/dl Total Bilirubin (0.2-1) mg/dl AST (15-37) U/L ALT (12-78) U/L Alkaline Phosphatase (45-117) U/L C-Reactive Protein (0-0.29) mg/dl Total Protein (6.4-8.2) gm/dl Albumin (3.4-5.0) gm/dl Globulin (2.5-4.0) gm/dl Albumin/Globulin Ratio (0.9-2) Fld Lyme DNA (PCR) CSF Appearance Clear CSF Color Colorless Xanthrochromic No xanthochromia CSF WBC 340 H* (0-5) /uL CSF RBC 18 (0-) /uL CSF Cell Count Tube # 3 CSF Mononuclear WBCs % 96.7 % CSF Polynuclear WBCs % 3.3 % CSF Chemistry Tube # CSF Glucose (40-70) mg/dl CSF Total Protein Cancelled Lyme Specimen Source Lyme IgG (Western Blot) Lyme IgG 18 kDa Band Lyme IgG 23 kDa Band Lyme IgG 28 kDa Band Lyme IgG 30 kDa Band Lyme IgG 39 kDa Band Lyme IgG 41 kDa Band Lyme IgG 45 kDa Band Lyme IgG 58 kDa Band Lyme IgG 66 kDa Band Lyme IgG 93 kDa Band Lyme IgM (Western Blot) Lyme IgM 23 kDa Band Lyme IgM 39 kDa Band Lyme IgM 41 kDa Band Blood Type O Negative Antibody Screen NEGATIVE 11/09/18 11/09/18 11/09/18 Range/Units 13:29 13:29 13:29 WBC (4.8-10.8) K/uL RBC (4.7-6.1) M/uL Hgb (14.0-18.0) g/dL Hct (42-52) % MCV (80-100) fL MCH (25-34) pg MCHC (32-36) g/dL RDW Std Deviation (36.4-46.3) fL RDW Coeff of Heike (11.5-14.5) % Plt Count (130-400) K/uL MPV (7.4-10.4) fL Immature Gran % (Auto) % Neut % (Auto) % Lymph % (Auto) % [place] % (Auto) % Eos % (Auto) % Baso % (Auto) % Immature Gran # (Auto) (0.00-0.02) K/uL Neut # (Auto) (1.4-6.5) K/uL Lymph # (Auto) (1.2-3.4) K/uL [place] # (Auto) (0.11-0.59) K/uL Eos # (Auto) (0-0.5) K/uL Baso # (Auto) (0-0.2) K/uL ESR (0-14) mm/hr PT (9.0-12.0) Seconds INR (0.9-1.1) APTT (21.0-31.0) Seconds PTT Ratio Sodium (136-145) mmol/L Potassium (3.5-5.1) mmol/L Chloride (98-107) mmol/L Carbon Dioxide (21-32) mmol/L Anion Gap (3-11) BUN (7-18) mg/dl Creatinine (0.6-1.4) mg/dl Est Cr Clr Drug Dosing ml/min Est GFR ( Amer) Est GFR (Non-Af Amer) BUN/Creatinine Ratio (10-20) Glucose (70-99) mg/dl POC Glucose (70-99) Calcium (8.5-10.1) mg/dl Magnesium (1.8-2.4) mg/dl Total Bilirubin (0.2-1) mg/dl AST (15-37) U/L ALT (12-78) U/L Alkaline Phosphatase (45-117) U/L C-Reactive Protein (0-0.29) mg/dl Total Protein (6.4-8.2) gm/dl Albumin (3.4-5.0) gm/dl Globulin (2.5-4.0) gm/dl Albumin/Globulin Ratio (0.9-2) Fld Lyme DNA (PCR) Cancelled CSF Appearance CSF Color Xanthrochromic CSF WBC (0-5) /uL CSF RBC (0-) /uL CSF Cell Count Tube # CSF Mononuclear WBCs % % CSF Polynuclear WBCs % % CSF Chemistry Tube # 1 CSF Glucose 50 (40-70) mg/dl CSF Total Protein 52.4 H Lyme Specimen Source Cancelled Lyme IgG (Western Blot) Cancelled Lyme IgG 18 kDa Band Cancelled Lyme IgG 23 kDa Band Cancelled Lyme IgG 28 kDa Band Cancelled Lyme IgG 30 kDa Band Cancelled Lyme IgG 39 kDa Band Cancelled Lyme IgG 41 kDa Band Cancelled Lyme IgG 45 kDa Band Cancelled Lyme IgG 58 kDa Band Cancelled Lyme IgG 66 kDa Band Cancelled Lyme IgG 93 kDa Band Cancelled Lyme IgM (Western Blot) Cancelled Lyme IgM 23 kDa Band Cancelled Lyme IgM 39 kDa Band Cancelled Lyme IgM 41 kDa Band Cancelled Blood Type Antibody Screen Imaging Data Radiologist's Impression: Radiology results as stated below per my review and the radiologist's interpretation: NECK CTA HISTORY: left facial weakness sparing forehead TECHNIQUE: Multiaxial CT images of the neck were performed following the intravenous administration of contrast to evaluate the major cervical vessels. Maximum intensity projection images were also obtained. All measurements were calculated based on NASCET criteria. A dose lowering technique was utilized adhering to the principles of ALARA. COMPARISON STUDY: None. FINDINGS: The aortic arch and proximal great vessels are widely patent. There is no significant stenosis, occlusion, or dissection identified within the bilateral common carotid, internal carotid, or vertebral arteries. IMPRESSION: No significant stenosis, occlusion, or dissection identified within the carotid or vertebral arteries. Electronically signed by: Marlo Woodard M.D. 11/09/2018 12:37 PM Brain MRA HISTORY: left facial weakness sparing forehead TECHNIQUE: 3-D [id number] MRA of the brain was performed without contrast. COMPARISON STUDY: Head CT 11/08/2018. FINDINGS: Visualized intracranial internal carotid arteries, distal vertebral arteries, and basilar artery are widely patent. There is no significant stenosis, occlusion, or aneurysm seen within the bilateral ACAs, MCAs, or meat smoker. IMPRESSION: No significant stenosis, occlusion, or aneurysm within the [place]. Electronically signed by: Marlo Woodard M.D. 11/09/2018 11:53 AM Brain MRI WITH AND WITHOUT CONTRAST HISTORY: left facial weakness sparing forehead TECHNIQUE: Multiplanar multisequence MRI of the brain was performed both before and after the intravenous administration of contrast. COMPARISON STUDY: None. FINDINGS: There are no areas of restricted diffusion to suggest acute infarction. The midline structures are intact. Small retention cysts within the left maxillary sinus. The orbits are unremarkable. There is a single punctate focus of T2 hyperintensity seen within the periventricular and the left lateral lobe. There is also a 3 mm T2 hyperintense enhancing focus within the mid melanie on image 7 of the postcontrast sequences. No additional areas of abnormal enhancement identified within the brain. The mastoid air cells are clear. The ventricles and sulci are within normal limits for age. There is no mass, hematoma, midline shift. The major vascular flow-voids at the skull base are well maintained. Postcontrast sequences show no areas of abnormal enhancement. IMPRESSION: 1. No acute infarct. 2. A 3 mm T2 hyperintense enhancing focus within the mid melanie. This is nonspecific and could represent a focus of demyelination, a small glioma, or subacute to chronic lacunar infarct. A small capillary telangectasia could also have this appearance but is considered less likely. One month brain MRI follow- up is recommended to evaluate for stability/resolution. Electronically signed by: Marlo Woodard M.D. 11/09/2018 12:46 PM ECG Data Attestation: I personally reviewed and interpreted this ECG as follows: Indication: other (stroke symptoms) Rate (beats per minute): 94 Rhythm: normal sinus Findings: no PVC and no ST elevation Blood Pressure Blood Pressure Findings: Elevated blood pressure Blood Pressure Disposition: Referred to patients primary care provider [facility] Narrative I did evaluate the patient as noted above. The patient is presenting with left- sided facial weakness sparing the forehead. He was here yesterday and seen by myself. He refused CT angiogram, lumbar puncture and further work-up and left AMA. He states his headache is now completely gone but when he was drinking soda it dropped out of his mouth. He woke up with the symptoms. He had no recorded fever at home but stated he sweats all night long. He states now he is willing to do whatever test that I recommend including lumbar puncture. He was placed in isolation. I did order an MRI and MRA of the head and neck. I did review the images myself as well as the radiology report as described above. There is no evidence of acute infarct. There was some hyperintensity in the melanie which was of unclear etiology. They did recommend a repeat MRI in a month. IV access was established. The patient was placed on a continuous front desk monitor. I did discuss the case with the stroke neurologist at [facility] who agreed with my plan for MRI and MRA of the head and subsequent lumbar puncture if the MRI was negative. I did order and personally review the patient's 12- lead EKG as described above. There is no evidence of heart block or acute ischemia. I did order and review the patient's blood work as noted in the electronic medical record. His white count is 7.2. Once the patient returned from MRI he started developing a severe headache. He stated it started about 20 minutes prior to my reevaluation. He was given Zofran IV and I did again obtain informed consent for lumbar puncture. He did agree to the lumbar puncture. See the procedure note as described above. CSF analysis shows elevated WBCs. Protein is elevated as well. I did send testing for CSF Lyme, HSV and West Nile. I also sent a Western blot serum Lyme test. I did treat the patient with 2 g of Rocephin IV. He was also given a bolus of vancomycin IV. Additionally the patient was given IV Decadron and acyclovir. He was given Compazine and Benadryl IV for his headache. I did discuss the test results with the patient and recommended hospitalization. 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 He now has involvement of the left forehead. I did discuss the case with the hospitalist and case picker. Impression & Plan Meningitis, Bar's palsy Critical Care Time I have personally spent 35 minutes of critical care time in the direct management of this patient. This includes bedside care, interpretation of diagnostic studies, and testing, discussion with consultants, patient, and family members, and other required patient management activities. These minutes are in excess of all separately billable procedures. Discharge Plan Visit Data Chief Complaint: Neuro Symptoms/Deficit Stated Complaint: L SIDE OF FACE NUMB ED Provider: Lavell Flor Discharge Problem: Meningitis, Bar's palsy Patient Disposition: Being Evaluated by Hospitalist Discharge Instructions Interventions: ED Discharge Assessment Last Done: 11/09/18 15:47 The scribe's documentation has been prepared under my direction and personally reviewed by me in its entirety. I confirm that the note above accurately reflects all work, treatment, procedures, and medical decision making performed by me.
[2018-11-09] MEDS ORDERED: ONDANSETRON INJ 2 MG/ML 2 ML VIAL IV PRN (16:17)
[2018-11-09] MEDS ORDERED: PROCHLORPERAZINE 5 MG in SYRINGE 4 ML IV PRN (16:17)
[2018-11-09] MEDS ORDERED: ALBUTEROL HFA 8 GM INHALER INH PRN (16:17)
[2018-11-09] MEDS: LACTATED RINGER'S 1,000 ML IV SCH (17:37)
[2018-11-09] MEDS: ACETAMINOPHEN 1,000 MG/100 ML VIAL IV SCH ×2 (17:37→23:37)
[2018-11-09] MEDS: NYSTATIN SUSP 500,000 U/5 ML UDC PO SCH ×2 (18:04→19:31)
[2018-11-09] MEDS: AMPICILLIN 2,000 MG in SODIUM CHLOR 0.9% AD-VAN 100 ML IV SCH ×2 (18:52→21:58)
--- NOTE | 2018-11-09 20:27 | Pharmacy Report ---
Pharmacy Abx Initial Consult - Date of Service November 09, 2018 - Pharmacy Dosing Scope Date of Consult: 11/09/18 Consultation requested by: Dr. Whittaker Pharmacy is consulted to initiate Vancomycin IV dosing therapy, order appropriate labs and adjust drug dose/frequency. - Subjective The patient is a 33 year old M admitted on 11/09/18 15:07. - Objective Height: 6 ft Weight: 91.4 kg Vital Signs (Past 12hrs): Vital Signs Temp Pulse Pulse Resp BP BP BP 11/09/18 19:48 37.2 C 82 17 116/68 11/09/18 16:19 37.1 C 71 16 126/70 11/09/18 15:47 73 16 111/60 11/09/18 15:30 73 16 111/60 11/09/18 15:02 37.5 C 80 20 122/67 11/09/18 14:12 71 18 118/68 11/09/18 13:36 74 18 119/60 11/09/18 12:31 71 18 143/85 H 11/09/18 10:54 82 18 130/91 11/09/18 10:26 11/09/18 10:23 11/09/18 10:07 36.9 C 108 H 18 133/78 Pulse Ox 11/09/18 19:48 95 11/09/18 16:19 95 11/09/18 15:47 94 11/09/18 15:30 94 11/09/18 15:02 98 11/09/18 14:12 97 11/09/18 13:36 97 11/09/18 12:31 98 11/09/18 10:54 99 11/09/18 10:26 96 11/09/18 10:23 96 11/09/18 10:07 98 Lab Results (24hrs): Laboratory Tests (24 Hours) 11/09/18 11/09/18 11/09/18 10:20 10:20 10:20 WBC Neut # (Auto) ESR 25 H Creatinine 1.08 Est Cr Clr Drug Dosing 107.8 C-Reactive Protein 0.68 H 11/09/18 10:20 WBC 7.29 Neut # (Auto) 5.23 ESR Creatinine Est Cr Clr Drug Dosing C-Reactive Protein Micro Results: 11/09/18 14:55 Aerobic Blood Culture - Pending Blood Anaerobic Blood Culture - Pending 11/09/18 14:54 Aerobic Blood Culture - Pending Blood Anaerobic Blood Culture - Pending 11/09/18 13:29 Gram Stain - Final Cerebral Spinal Fluid CSF Culture - Pending - Assessment & Plan Assessment 33 year old M admitted with severe headache and L facial droop suspecting Meningitis. Pharmacy consulted to dose Vancomycin. Plan Vancomycin for treatment of possible Meningitis Vancomycin IV * Estimated PK Parameters: Vd 0.7 L/kg, Gregory 0.1 hr-1, t1/2 6.9 hr * Loading dose: 1750 mg (19 mg/kg) given in ED. * Maintenance dose: 1500 mg IV (16 mg/kg) every 8 hours * Goal trough level for Meningitis: 18 to 20 mcg/mL * Trough level ordered for 11/11 before dose at 0800. Pharmacy will continue to follow and will adjust dose/frequency as necessary. Thank you.
[2018-11-09 20:38] LABS: Amphetamines+Metham, Urine Neg (Neg); Barbiturates, Urine Neg (Neg); Benzodiazepine, Urine Neg (Neg); Cocaine, Urine Neg (Neg); MDMA (Ecstacy), Urine Neg (Neg); Methadone, Urine Neg (Neg); Opiate, Urine Neg (Neg); Phencyclidine, Urine Neg (Neg)
[2018-11-09] MEDS: ACYCLOVIR SOD 900 MG in DEXTROSE 5% 250 ML IV SCH (22:00)
[2018-11-09] MEDS: VANCOMYCIN HCL 1,500 MG in SODIUM CHLORIDE 0.9% 500 ML IV SCH (23:55)
[2018-11-10] MEDS: AMPICILLIN 2,000 MG in SODIUM CHLOR 0.9% AD-VAN 100 ML IV SCH ×5 (02:20→17:18)
[2018-11-10] MEDS: LACTATED RINGER'S 1,000 ML IV SCH ×2 (02:20→10:36)
[2018-11-10] MEDS: cefTRIAXone SODIUM 2,000 MG in DEXTROSE 5% 50 ML IV SCH ×2 (02:53→13:10)
[2018-11-10] MEDS: ACYCLOVIR SOD 900 MG in DEXTROSE 5% 250 ML IV SCH ×3 (05:42→22:08)
[2018-11-10 07:38] LABS: Basophils # (auto) 0.01 K/uL (0-0.2); Basophils % (auto) 0.1 %; Hematocrit (blood only) 38.6 % (42-52); Hemoglobin 13.7 g/dL (14.0-18.0); Immature Granulocytes # (auto) 0.01 K/uL (0.00-0.02); Immature Granulocytes % (auto) 0.1 %; Lymphocytes # (auto) 1.74 K/uL (1.2-3.4); Mean Corpuscular Hgb Conc 35.5 g/dL (32-36); Mean Corpuscular Volume 94.6 fL (80-100); Mean Platelet Volume 9.2 fL (7.4-10.4); Monocytes # (auto) 0.79 K/uL (0.11-0.59); Monocytes % (auto) 8.2 %; Neutrophils # (auto) 7.09 K/uL (1.4-6.5); Neutrophils % (auto) 73.6 %; Platelet Count 222 K/uL (130-400); RDW Coefficient of Variation 12.9 % (11.5-14.5); RDW Standard Deviation 44.8 fL (36.4-46.3); Red Blood Count 4.08 M/uL (4.7-6.1); White Blood Count 9.64 K/uL (4.8-10.8)
[2018-11-10 07:57] LABS: Albumin Level 3.7 gm/dl (3.4-5.0); Bilirubin Direct 0.1 mg/dl (0-0.2); Creatinine Clr Calc Pharmacy 123.8 ml/min; Est GFR (African American) 123.8; Est GFR (Non-African American) 106.9; Potassium 4.1 mmol/L (3.5-5.1)
[2018-11-10 08:00] LABS: Bilirubin,Total 0.4 mg/dl (0.2-1); Globulin 3.6 gm/dl (2.5-4.0); Total Protein 7.3 gm/dl (6.4-8.2)
[2018-11-10] MEDS: ACETAMINOPHEN 1,000 MG/100 ML VIAL IV SCH ×3 (08:07→23:35)
[2018-11-10] MEDS: VANCOMYCIN HCL 1,500 MG in SODIUM CHLORIDE 0.9% 500 ML IV SCH ×3 (08:08→23:52)
[2018-11-10] MEDS: MONTELUKAST SODIUM 10 MG TABLET PO SCH ×3 (08:08→20:06)
[2018-11-10] MEDS: NYSTATIN SUSP 500,000 U/5 ML UDC PO SCH ×4 (08:08→20:06)
[2018-11-10] MEDS ORDERED: Nursing to Pharmacy Communication ONE (09:04)
--- NOTE | 2018-11-10 11:31 | Neurology Consultation ---
Date of Consultation November 10, 2018 History of Present Illness Attending Physician: Mavis Whittaker MD Assessment / Plan: Meningitis Left Peripheral CN VII Palsy Dysarthria A 33 year old male admitted with progressive headache, stiff neck, and N/V. LP performed in the ED showed mildly elevated protein and markedly eleavted WBC concerning for viral Vs bacterial meningitis. CSF glucose was normal. MRI brain w/wo contrast showed small hypointense Lesion on T1 which enhances and a left temporal hyperintense lesion. Unclear if this is related to current infection Vs incidental finding. History devoid of features to suggest multiple sclerosis. On examine he has a peripherla CN VII palsy (álvarez's palsy). - Agree with broad spectrum antimicrobial treatment including HSV for suspected bacterial Vs Aseptic meningitis. - Please check CSF fluid for HSV, CMV, EBV, CSF lyme PCR, and CSF oligoclonal bands. - Recommend ID consult - Please check serum NMO IGG - Please check serum HIV, RPR, EBV, RIVAS, and SLE - For headache can give IV Reglan 10 mg Iv Q8hr and Benadryl 25 mg IV , If needed can give Depakote 750 mg IV Q12hr - Patient will certainly need repeat in MRI brain in 4-6 weeks after discharge. It would be ideal to have MRI brain with T2 FLAIR axial sequence now to view. Unclear if radiology can repeat limited study while inpatient with this sequence. Neurology will continue to follow closely. History of Present Illness A 33-year-old male with no significant past medical history admitted yesterday for suspected acute bacterial meningitis. He presented to the ED 2 days ago for severe headache which it progressively got worse for 2 days. It was a 10 out of 10 in severity. Also noted to have some chills but unclear if he had a fever. LP was recommended however patient left AMA. He then presented 1 day later with severe headache and left facial droop. LP was performed in the ED with an elevated protein and elevated white count suggestive of an acute bacterial meningitis. He was started on broad-spectrum antimicrobials. Neurology was notified when MRI brain showed a hyperintense lesion in the melanie. Patient is in a 6 significant past medical history. Denies any significant headaches however does report one episode of a self diagnosed migraine. He has a history of asthma. 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 Allergies Allergy/AdvReac Type Severity Reaction Status Date / Time No Known Allergies Allergy Verified 11/09/18 10:59 Home Medications Home Medications Medication Instructions Recorded Confirmed Type albuterol sulfate 2 puff INHALATION Q6H PRN 03/26/18 11/09/18 History montelukast [Singulair] 10 mg PO DAILY 03/26/18 11/09/18 History mometasone-formoterol [Dulera] 2 puff INHALATION Q12H 11/09/18 11/09/18 History Patient History Medical History No significant past surgical history (Chronic) Asthma (Chronic) Back pain with sciatica (Acute) Family History Other Cerebral aneurysm Social History Preferred Language: Serbian Communication Ability: Effective Core 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
--- NOTE | 2018-11-10 15:30 | Infectious Disease Consult ---
Date of Consultation November 10, 2018 Assessment & Plan (1) Meningitis: 33-year-old previously healthy male with meningitis symptoms associated with left facial nerve palsy, with CSF suggestive of "aseptic meningitis" or meningoencephalitis. Bacterial infection seems less likely. Negative Lyme serology speaks against this diagnosis is typically patients will be Lyme antibody positive when they present with meningitis. Would also worry about possibility of West Nile virus as well as other usual pathogens. Agree with current antibiotics for the next 24 hours pending final culture results. Additional serologies ordered. Will follow. (2) Bar's palsy: History of Present Illness Reason for Consultation: Meningitis Attending Physician: Mavis Whittaker MD History of Present Illness 33-year-old male with history of asthma but otherwise good health was well until approximately 7 days ago when he noticed a "sore" on the tip of his tongue. Subsequently developed severe headache, neck stiffness, episode of vomiting and fever. He came to the emergency department but refused lumbar puncture, but symptoms progressively worsened and he returned. Lumbar puncture revealed elevated white blood cell count of 340, 90% monocytes, with mildly elevated protein, normal glucose. Gram stain showed white cells, no organisms. Cultures are pending. Patient has been started empirically on ampicillin, vancomycin, ceftriaxone, and acyclovir. Lyme serology negative. 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 Allergies Allergy/AdvReac Type Severity Reaction Status Date / Time No Known Allergies Allergy Verified 11/09/18 10:59 Home Medications Home Medications Medication Instructions Recorded Confirmed Type albuterol sulfate 2 puff INHALATION Q6H PRN 03/26/18 11/09/18 History montelukast [Singulair] 10 mg PO DAILY 03/26/18 11/09/18 History mometasone-formoterol [Dulera] 2 puff INHALATION Q12H 11/09/18 11/09/18 History Patient History Medical History No significant past surgical history (Chronic) Asthma (Chronic) Back pain with sciatica (Acute) Family History Other Cerebral aneurysm Social History Preferred Language: Hungarian Communication Ability: Effective Director Of Optimization Required: No Beliefs That Will Affect Care: None marital status: Current Living Situation: Spouse Feels Safe at Home: Yes Safety Concerns: Feels Safe At This Time Smoking Status: Current some day smoker Cigarettes Per Day: 10 Hx Alcohol Use: No Hx Substance Use: Yes substance use type: marijuana Last Used Substance Other:: 1x per month Review of Systems Review of Systems: All systems reviewed & are unremarkable except as noted in HPI & below Physical Exam Constitutional: WD/WN, vitals as above healthy appearing; no acute distress Eyes: PERRL, conjunctivae normal, anicteric sclerae ENMT: external ear and nose normal, oropharynx normal Neck: trachea midline, no thyromegaly neck nontender Respiratory: normal respiratory effort, lungs clear to auscultation normal percussion; does not use accessory muscles Cardiovascular: Rate/Rhythm: regular rate and regular rhythm Heart Sounds: normal S1 and normal S2; no gallop, no murmur and no cardiac rub Vessels: normal peripheral pulses; no JVD Gastrointestinal (Abdomen): normal bowel sounds, soft, nontender, no hepatosplenomegaly Musculoskeletal: no cyanosis or clubbing, extremities motor strength 5/5 Head/Neck/Chest: + neck not supple (Mild stiffness) Spine: thoracic spine normal to inspection and lumbar spine normal to inspection; no cervical spinal tenderness Skin: no rashes, warm and dry normal turgor; no lesions Neurologic: patellar DTR's 2+ bilat, sensation intact awake Cranial Nerves: + abnormal facial strength (Left facial nerve palsy) Psychiatric: A+Ox3, euthymic affect Orientation: cooperative Lymphatic: no cervical or axillary lymphadenopathy no inguinal lym phadenopathy Results & Data Vital Signs (Past 12 Hours) Vital Signs Temp Pulse Resp BP Pulse Ox 11/10/18 11:07 36.7 C 79 18 108/67 98 11/10/18 07:53 36.9 C 71 18 100/61 97 11/10/18 03:45 36.5 C 60 16 112/65 95 Laboratory Results Short CBC 11/10/18 Range/Units 06:52 WBC 9.64 (4.8-10.8) K/uL Hgb 13.7 L (14.0-18.0) g/dL Hct 38.6 L (42-52) % Plt Count 222 (130-400) K/uL BMP 11/10/18 06:52 Sodium 140 Potassium 4.1 Chloride 109 H Carbon Dioxide 26 BUN 12 Creatinine 0.94 Glucose 120 H Calcium 9.0 Liver Function 11/10/18 Range/Units 06:52 Total Bilirubin 0.4 (0.2-1) mg/dl Direct Bilirubin 0.1 (0-0.2) mg/dl AST 10 L (15-37) U/L ALT 20 (12-78) U/L Alkaline Phosphatase 71 (45-117) U/L Albumin 3.7 (3.4-5.0) gm/dl Diagnostic Findings Microbiology 11/09/18 13:29 Cerebral Spinal Fluid Gram Stain - Final 11/09/18 13:29 Cerebral Spinal Fluid CSF Culture - Preliminary No growth to date. Magnetic Resonance Report Patient: ROYAL SEN Date: 11/09/18 MR#: [id number] Acct ID:[id number]: Date: 1985[facility] Zip: [place] [address] Age: 33Location: ED Sex: M Room/Bed: Att Phy: Diagnosis: L SIDE OF FACE NUMB Namrata Phy: Rob Anderson III, MDService Date: 11/09/18 Fam Phy: Interpreting Phy: Marlo Woodard MD Admit Phy: Ordering Phy: Lavell Flor MD cc: ~ Brain MRI WITH AND WITHOUT CONTRAST HISTORY: left facial weakness sparing forehead TECHNIQUE: Multiplanar multisequence MRI of the brain was performed both before and after the intravenous administration of contrast. COMPARISON STUDY: None. FINDINGS: There are no areas of restricted diffusion to suggest acute infarction. The midline structures are intact. Small retention cysts within the left maxillary sinus. The orbits are unremarkable. There is a single punctate focus of T2 hyperintensity seen within the periventricular and the left lateral lobe. There is also a 3 mm T2 hyperintense enhancing focus within the mid melanie on image 7 of the postcontrast sequences. No additional areas of abnormal enhancement identified within the brain. The mastoid air cells are clear. The ventricles and sulci are within normal limits for age. There is no mass, hematoma, midline shift. The major vascular flow-voids at the skull base are well maintained. Postcontrast sequences show no areas of abnormal enhancement. IMPRESSION: 1. No acute infarct. 2. A 3 mm T2 hyperintense enhancing focus within the mid melanie. This is nonspecific and could represent a focus of demyelination, a small glioma, or subacute to chronic lacunar infarct. A small capillary telangectasia could also have this appearance but is considered less likely. One month brain MRI follow- up is recommended to evaluate for stability/resolution. Electronically signed by: Marlo Woodard M.D. 11/09/2018 12:46 PM Dictated: 11/09/18 1237
[2018-11-10] MEDS: HYDROmorphone INJ 1 MG/ML SYRINGE IV PRN ×2 (17:17→23:13)
--- NOTE | 2018-11-10 18:14 | Hospitalist Progress Note ---
Date of Service November 10, 2018 Assessment & Plan (1) Meningitis: Possible viral/aseptic meningitis, Lyme titer negative, cultures of CSF been negative so far Presented with a headache, low-grade fever, CSF fluid WBC 340 with mild elevation of creatinine, normal glucose level Appreciate input from infectious disease Dr. Bar Recommend continue IV antibiotic until final culture report is back Present on Admission?: Yes (2) Bar's palsy: Left-sided 7th cranial nerve palsy/Bar's palsy noted, Patient complains of complete numbness of left side of face unable to raise eyebrow on the left side, unable to blink Bar's palsy possible sequela of viral meningitis Appreciate input from neurology Steroid treatment not offered, with concern of active infection/meningitis Recommend eye patch, natural tears/lubricating eye ointments to prevent dryness of eye Continue supportive care with IV fluids (3) Severe headache: Take care symptom has resolved This is a 33-year-old male who has a significant past medical history of asthma who presents to [facility] ED secondary to severe headache x3 days along with left facial droop x1 day. Patient initially presented to ED on 11/08 secondary to severe headache. In ED pt CBC and BMP relatively unremarkable, except for glucose 111 and NA 135 He underwent LP + 340 wbc, total protein elevated 52.4 Gram stain +many wbc but no organism seen Viral and lyme serologies negative MRA of head/neck negative for stenosis MRI brain concerning for T2 hyperintense enhanced focus of mid melanie 3mm ddx but not limited to Meninigits bacterial vs viral, MS, lyme disease, Demyelinating neurologic disease, CVA, Patient is continued with IV antibiotics Vancomycin, Rocephin, Ampicillin and Antiviral Acyclovir until culture returns Continue IV fluids Received IV dexamethasone in ED will monitor response Appreciate input from ID and neurology (4) T2 hyperintense foci present in melanie on magnetic resonance imaging: MRI: A 3 mm T2 hyperintense enhancing focus within the mid melanie. This is nonspecific and could represent a focus of demyelination, a small glioma, or lantigua bacute to chronic lacunar infarct. A small capillary telangectasia could also have this appearance but is considered less likely. One month brain MRI follow- up is recommended to evaluate for stability/resolution. oligoclonal bands ordered for CSF analysis report pending Neurology consulted uncertain significance at this time will need repeat imaging in 4 weeks or per neurology (5) Thrush: possible thrush pt complains of sore/burning tongue-uses inhaler at home treat with nystatin patient reports of improvement symptoms (6) Asthma: no acute exacerbation continue mometasone (7) DVT prophylaxis: SCDS/TEDS Disposition: Expect expected to be discharged home when medically stable Follow up: PCP Dr. Anderson, pt will also need appropriate follow up with Neurology and repeat MRI Subjective States the headache is getting better, numbness, on left face, unable to blink unable to raise eyebrows, typical feature of Bar's palsy Afebrile, no neurological deficit Physical Exam Constitutional: WD/WN, vitals as above no acute distress Eyes: PERRL, conjunctivae normal, anicteric sclerae Unable to raise left eyebrow, minimal movement of left eyelid, suggestive of left-sided facial nerve palsy ENMT: Right facial droop noted Neck: trachea midline, no thyromegaly Respiratory: normal respiratory effort, lungs clear to auscultation Cardiovascular: RRR, no murmur, no edema Gastrointestinal (Abdomen): normal bowel sounds, soft, nontender, no hepatosplenomegaly Musculoskeletal: no cyanosis or clubbing, extremities motor strength 5/5 Skin: no rashes, warm and dry Neurologic: patellar DTR's 2+ bilat, sensation intact Psychiatric: A+Ox3, euthymic affect Results & Data Vital Signs (Past 12 Hours) Vital Signs Temp Pulse Resp BP Pulse Ox 11/10/18 15:27 37.1 C 68 20 109/71 96 11/10/18 11:07 36.7 C 79 18 108/67 98 11/10/18 07:53 36.9 C 71 18 100/61 97
[2018-11-10] MEDS: ARTIFICIAL TEARS OP SCH ×2 (20:10→23:39)
[2018-11-11] MEDS: cefTRIAXone SODIUM 2,000 MG in DEXTROSE 5% 50 ML IV SCH ×2 (02:26→13:06)
[2018-11-11] MEDS: ARTIFICIAL TEARS OP SCH ×6 (03:12→23:25)
[2018-11-11] MEDS: ACYCLOVIR SOD 900 MG in DEXTROSE 5% 250 ML IV SCH ×3 (06:28→21:55)
[2018-11-11] MEDS ORDERED: VANCOMYCIN TROUGH ONE (07:30)
[2018-11-11] MEDS: NYSTATIN SUSP 500,000 U/5 ML UDC PO SCH ×4 (07:49→21:46)
[2018-11-11] MEDS: HYDROmorphone INJ 1 MG/ML SYRINGE IV PRN ×2 (07:49→23:25)
[2018-11-11] MEDS: VANCOMYCIN HCL 1,500 MG in SODIUM CHLORIDE 0.9% 500 ML IV SCH ×3 (07:50→23:24)
[2018-11-11 08:06] LABS: Creatinine Clr Calc Pharmacy 126.5 ml/min; Est GFR (African American) 127.1; Est GFR (Non-African American) 109.7
[2018-11-11] MEDS: ACETAMINOPHEN 1,000 MG/100 ML VIAL IV SCH ×3 (08:38→23:24)
--- NOTE | 2018-11-11 08:45 | Pharmacy Report ---
Pharmacy Abx Dose Short Note - Date of Service November 11, 2018 - Assessment & Plan Assessment 33 year old M receiving vancomycin for treatment of possible meningitis. ID is following the patient. Day # 3 of antimicrobial therapy. Plan Vancomycin * Trough level came back therapeutic today at 16.9 mcg/ml (goal 15-20 mcg/ml) * Scr remains stable, CrCl >100 ml/min - will continue same dosing regimen of vancomycin for now * Preliminary cultures are no growth at this time, awaiting final cultures * Lyme and West Nile studies also pending at this time - will continue to follow Pharmacy will continue to follow and will adjust dose/frequency as necessary. Thank you.
--- NOTE | 2018-11-11 15:13 | Neurology Progress Note ---
Date of Service November 11, 2018 Assessment & Plan (1) Severe headache: 1. currently headache is well controlled 2. left eye currently unable to keep closed, eye gtts during the day and would place eye ointment at night with eye patch 3. see Dr Cheng note for previous recommendations 4. ID- continue to follow for further recommendations 5. ophthalmology exam as outpatient for evaluation of retina 6. will continue to follow peripherally call with questions as needed. (2) Meningitis: (3) Bar's palsy: Supervising Physician Co-Signing Physician Notes I have seen and discussed above patient with Dr Franklin Cheng. Patient was seen and examined. Family at bedside. Denies headache currently. Denies any new symptoms. On examine has moderate left peripheral facial droop. Mild dysarthria. CSF studies suggestive of aseptic or viral meningitis. CSF HSV and lyme pending. Agree with discontinuing antibiotics. Would continue Acyclovir for now until HSV PCR results. Eye patch. I would start Prednisone 60 mg x5 days for left bar's palsy if NOT contraindicated from ID standpoint. Otherwise will plan to repeat MRI brain in 1-month and follow up with myself after repeat MRI imaging. Will continue to follow remotely. Lizeth Orourke is a 33 year old male who has a PMH of asthma who presents to [facility] ED secondary to severe headache x3 days along with left facial droop x1 day. He presented to ED on 11/08 secondary to severe headache. Headache described as, "worst headache of my life." Headache would come and go, located mostly left temporal region, worse with lying flat or walking, improved with IV benadryl and compazine. Never had anything like this in past. Work up yesterday essentially unremarkable; however a LP and CTA was recommended, pt refused and signed out AMA. He returns today with continued Headache along with new onset L facial drop that has since progressed to complete numbness and inability to move entire left side of face. LEE similar in nature today rated 7/10. +Photophobia, L ear tinnitus, Sweats, Chills, nausea and emesis. Last episode of emesis was yesterday morning. Denies hemetemsis. Overall has decreased appetite and temperature was elevated at ED yesterday to 37.8. Further complains of sore tongue, "I think I have a yeast infection from my inhaler." He smokes 1/2 pack daily and also smokes marijuana, last used 3 days ago. Denies ETOH use. 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
--- NOTE | 2018-11-11 16:12 | Infectious Disease Progress Nt ---
Date of Service November 11, 2018 Assessment & Plan (1) Meningitis: 33-year-old previously healthy male with meningitis symptoms associated with left facial nerve palsy, with CSF suggestive of "aseptic meningitis" or meningoencephalitis. Bacterial infection seems less likely. Negative Lyme sero logy speaks against this diagnosis is typically patients will be Lyme antibody positive when they present with meningitis. Would also worry about possibility of West Nile virus as well as other usual pathogens. Given negative cultures, would recommend discontinuation of antibiotics. Will discuss with all involved. (2) Bar's palsy: Subjective In follow-up for meningitis and facial nerve palsy. Patient feeling somewhat better, headache has improved. Remains afebrile. Cultures remain negative. Review of Systems Review of Systems: All systems reviewed & are unremarkable except as noted in HPI & below Physical Exam Constitutional: WD/WN, vitals as above healthy appearing; no acute distress Eyes: PERRL, conjunctivae normal, anicteric sclerae ENMT: external ear and nose normal, oropharynx normal Neck: trachea midline, no thyromegaly neck nontender Respiratory: normal respiratory effort, lungs clear to auscultation normal percussion; does not use accessory muscles Cardiovascular: Rate/Rhythm: regular rate and regular rhythm Heart Sounds: normal S1 and normal S2; no gallop, no murmur and no cardiac rub Vessels: normal peripheral pulses; no JVD Gastrointestinal (Abdomen): normal bowel sounds, soft, nontender, no hepatosplenomegaly Musculoskeletal: no cyanosis or clubbing, extremities motor strength 5/5 Head/Neck/Chest: + neck not supple (Mild stiffness) Spine: thoracic spine normal to inspection and lumbar spine normal to inspection; no cervical spinal tenderness Skin: no rashes, warm and dry normal turgor; no lesions Neurologic: patellar DTR's 2+ bilat, sensation intact awake Cranial Nerves: + abnormal facial strength (Left facial nerve palsy) Psychiatric: A+Ox3, euthymic affect Orientation: cooperative Lymphatic: no cervical or axillary lymphadenopathy no inguinal lymphadenopathy Results & Data Vital Signs (Past 12 Hours) Vital Signs Temp Pulse Resp BP Pulse Ox 11/11/18 15:20 36.8 C 72 16 118/67 97 11/11/18 07:00 36.6 C 75 18 98/59 L 97 Laboratory Results BMP 11/11/18 07:20 Creatinine 0.92 Diagnostic Findings Microbiology 11/09/18 13:29 Cerebral Spinal Fluid Gram Stain - Final 11/09/18 13:29 Cerebral Spinal Fluid CSF Culture - Final No growth 11/09/18 14:55 Blood Aerobic Blood Culture - Preliminary No growth in Aerobic bottle after 24 hours. 11/09/18 14:55 Blood Anaerobic Blood Culture - Preliminary No growth in Anaerobic bottle after 24 hours. 11/09/18 14:54 Blood Aerobic Blood Culture - Preliminary No growth in Aerobic bottle after 24 hours. 11/09/18 14:54 Blood Anaerobic Blood Culture - Preliminary No growth in Anaerobic bottle after 24 hours.
[2018-11-11] MEDS: MONTELUKAST SODIUM 10 MG TABLET PO SCH (21:47)
[2018-11-12] MEDS: cefTRIAXone SODIUM 2,000 MG in DEXTROSE 5% 50 ML IV SCH ×2 (02:31→13:50)
[2018-11-12] MEDS: ARTIFICIAL TEARS OP SCH ×3 (03:07→11:45)
[2018-11-12] MEDS: ACYCLOVIR SOD 900 MG in DEXTROSE 5% 250 ML IV SCH ×2 (06:29→14:36)
[2018-11-12 06:49] LABS: Creatinine Clr Calc Pharmacy 125.2 ml/min; Est GFR (African American) 125.5; Est GFR (Non-African American) 108.2
[2018-11-12] MEDS: ACETAMINOPHEN 1,000 MG/100 ML VIAL IV SCH (07:47)
[2018-11-12] MEDS: NYSTATIN SUSP 500,000 U/5 ML UDC PO SCH ×2 (07:48→11:45)
[2018-11-12] MEDS: VANCOMYCIN HCL 1,500 MG in SODIUM CHLORIDE 0.9% 500 ML IV SCH (08:16)
--- NOTE | 2018-11-12 16:15 | Hospitalist Progress Note ---
Date of Service November 11, 2018 late entry patient was seen on 11/10/2018 at 1300 Assessment & Plan (1) Meningitis: Possible viral/aseptic meningitis, Lyme titer negative, cultures of CSF been negative so far Presented with a headache, low-grade fever, CSF fluid WBC 340 with mild elevation of creatinine, normal glucose level Appreciate input from infectious disease Dr. 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 Patient initially presented to ED on 11/08 secondary to severe headache. In ED pt CBC and BMP relatively unremarkable, except for glucose 111 and NA 135 He underwent LP + 340 wbc, total protein elevated 52.4 Gram stain +many wbc but no organism seen Viral and lyme serologies negative MRA of head/neck negative for stenosis MRI brain concerning for T2 hyperintense enhanced focus of mid melanie 3mm ddx but not limited to Meninigits bacterial vs viral, MS, lyme disease, Demyelinating neurologic disease, CVA, Patient is continued with IV antibiotics Vancomycin, Rocephin, Ampicillin and Antiviral Acyclovir until culture returns Continue IV fluids Received IV dexamethasone in ED will monitor response Appreciate input from ID and neurology (4) T2 hyperintense foci present in melanie on magnetic resonance imaging: MRI: A 3 mm T2 hyperintense enhancing focus within the mid melanie. This is nonspecific and could represent a focus of demyelination, a small glioma, or subacute to chronic lacunar infarct. A small capillary telangectasia could also have this appearance but is considered less likely. One month brain MRI follow- up is recommended to evaluate for stability/resolution. oligoclonal bands ordered for CSF analysis report pending Neurology consulted uncertain significance at this time will need repeat imaging in 4 weeks or per neurology (5) Thrush: possible thrush pt complains of sore/burning tongue-uses inhaler at home treat with nystatin patient reports of improvement symptoms (6) Asthma: no acute exacerbation continue mometasone (7) DVT prophylaxis: SCDS/TEDS Disposition: Possible discharge home tomorrow 11/12/2018 Follow up: PCP Dr. Anderson, pt will also need appropriate follow up with Neurology and repeat MRI Subjective States the headache is getting better, Persistent numbness on left side of face, able to talk a little bit more clear today, having some blinking movement of left eye, able to raise left eyebrow No fever or chills Physical Exam Constitutional: WD/WN, vitals as above no acute distress Eyes: PERRL, conjunctivae normal, anicteric sclerae Neck: trachea midline, no thyromegaly Respiratory: normal respiratory effort, lungs clear to auscultation Cardiovascular: RRR, no murmur, no edema Gastrointestinal (Abdomen): normal bowel sounds, soft, nontender, no hepatosplenomegaly Musculoskeletal: no cyanosis or clubbing, extremities motor strength 5/5 Skin: no rashes, warm and dry Neurologic: patellar DTR's 2+ bilat, sensation intact Psychiatric: A+Ox3, euthymic affect Results & Data Vital Signs (Past 12 Hours) Vital Signs Temp Pulse Pulse Resp BP BP Pulse Ox 11/12/18 15:45 36.9 C 68 81 18 111/73 98/59 L 92 11/12/18 15:25 36.9 C 81 18 111/73 92 11/12/18 07:00 36.9 C 73 18 117/70 96
--- NOTE | 2018-11-12 16:18 | Discharge Summary ---
Date of Service November 12, 2018 Admission HPI Per Admitting Provider This is a 33-year-old male who has a significant past medical history of asthma who presents to [facility] ED secondary to severe headache x3 days along with left facial droop x1 day. Patient initially presented to ED on 11/08 secondary to severe headache. Headache described as, "worst headache of my life." Headache would come and go, located mostly left temporal region, worse with lying flat or walking, improved with IV benadryl and compazine. Never had anything like this in past. Work up yesterday essentially unremarkable; however a LP and CTA was recommended, pt refused and signed out AMA. He returns today with continued Headache along with new onset L facial drop that has since progressed to complete numbness and inability to move entire left side of face. LEE similar in nature today rated 7/10. +Photophobia, L ear tinnitus, Sweats, Chills, nausea and emesis. Last episode of emesis was yesterday morning. Denies hemetemsis. Overall has decreased appetite and temperature was elevated at ED yesterday to 37.8. Further complains of sore tongue, "I think I have a yeast infection from my inhaler." He denies any lightheaded, dizziness, neck pain/stiffness, chest pain, sob, palpitations, abdominal pain, diarrhea, change in bowel or urinary habits. No recent illness or travel, no sick contacts or tick bites. Denies any past surgical history or significant family history. He smokes 1/2 pack daily and also smokes marijuana, last used 3 days ago. Denies ETOH use. Principal Diagnosis Viral meningitis/Bar's palsy on left side Discharge Exam Constitutional WD/WN, vitals as above no acute distress Eyes PERRL, conjunctivae normal, anicteric sclerae Neck trachea midline, no thyromegaly Respiratory normal respiratory effort, lungs clear to auscultation Cardiovascular RRR, no murmur, no edema Gastrointestinal (Abdomen) normal bowel sounds, soft, nontender, no hepatosplenomegaly Musculoskeletal no cyanosis or clubbing, extremities motor strength 5/5 Skin no rashes, warm and dry Neurologic patellar DTR's 2+ bilat, sensation intact Psychiatric A+Ox3, euthymic affect Discharge Data Allergies Allergy/AdvReac Type Severity Reaction Status Date / Time No Known Allergies Allergy Verified 11/09/18 10:59 Consultations 11/09/18 14:26 ED Decision to Admit Stat 11/09/18 16:17 Consult Case Management - Discharge Planning Routine Consult Infectious Diseases Routine Consult Neurology Routine Ordered Studies 11/09/18 10:24 MR angio head wo con Stat MR angio neck wo/w con Stat MR brain wo/w con Stat Hospital Course (1) Meningitis: Possible viral/aseptic meningitis, Lyme titer negative, cultures of CSF been negative so far All IV antibiotic discontinued Stable to be discharged home today Presented with a headache, low-grade fever, CSF fluid WBC 340 with mild elevation of creatinine, normal glucose level Appreciate input from infectious disease Dr. 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/Bar's palsy noted, Patient complains of complete numbness of left side of face unable to raise eyebrow on the left side, unable to blink Bar's palsy possible sequela of viral meningitis Appreciate input from neurology Recommend eye patch, natural tears/lubricating eye ointments to prevent dryness of eye Patient will be discharged with Medrol dose pack (3) Severe headache: Symptom has completely resolved Possible secondary to viral meningitis This is a 33-year-old male who has a significant past medical history of asthma who presents to [facility] ED secondary to severe headache x3 days along with left facial droop x1 day. Patient initially presented to ED on 11/08 secondary to severe headache. In ED pt CBC and BMP relatively unremarkable, except for glucose 111 and NA 135 He underwent LP + 340 wbc, total protein elevated 52.4 Gram stain +many wbc but no organism seen Viral and lyme serologies negative MRA of head/neck negative for stenosis MRI brain concerning for T2 hyperintense enhanced focus of mid melanie 3mm Initially treated with IV antibiotics Vancomycin, Rocephin, Ampicillin and An tiviral Acyclovir until culture returns IV fluids resuscitation Received IV dexamethasone in ED Appreciate input from ID and neurology Stable to be discharged home today, no further antibiotic or antiviral needed (4) T2 hyperintense foci present in melanie on magnetic resonance imaging: MRI: A 3 mm T2 hyperintense enhancing focus within the mid melanie. This is nonspecific and could represent a focus of demyelination, a small glioma, or subacute to chronic lacunar infarct. A small capillary telangectasia could also have this appearance but is considered less likely. One month brain MRI follow- up is recommended to evaluate for stability/resolution. oligoclonal bands ordered for CSF analysis report pending Neurology consulted uncertain significance at this time Outpatient follow-up with neurology Dr. Rapp in 3 to 4 weeks will need repeat imaging in 4 weeks or per neurology (5) Thrush: possible thrush pt complains of sore/burning tongue-uses inhaler at home treat with nystatin patient reports of improvement symptoms (6) Asthma: no acute exacerbation continue mometasone (7) DVT prophylaxis: SCDS/TEDS Disposition: Stable to be discharged home today Follow up: PCP Dr. Anderson, pt will also need appropriate follow up with Neurology and repeat MRI Total Time Total Time Spent Total Time Spent (In Minutes): Approximately 45 minutes Total Time Includes: Examination of the Patient, Discharge Planning and Medication Reconciliation Discharge Plan Discharge Items Patient Disposition: Home - Self-Care Reason For Visit: HEADACHE Discharge Diagnosis: MENINGITIS /BELLS PALSY Discharge Goals: Decrease discomfort, Diagnostic testing and Therapeutic intervention Activity: Resume your previous activity Non-emergency contact: Primary Care Provider Call non-emergency contact if: you have any medication questions Follow-up/Referrals: Rob Anderson MD [Primary Care Provider] - 11/15/18 1:45 pm Franklin Cheng, [Physician] - (In 3 to 4 weeks) Diet: Regular Addtl Provider Instructions: Hospital follow-up with Dr. Anderson on 11/15/2018 at 1:45 PM You are scheduled appointment on , 11/14/2018 is canceled Neurology follow-up with Dr. Rapp in 3 to 4 weeks MRI of brain with and without contrast in 4 weeks Prescriptions: New methylprednisolone [Medrol (Humberto)] 4 mg tablets,dose pack 4 mg PO UD Qty: 21 RF: 0 nystatin 100,000 unit/mL Suspension 5 ml PO QID 3 Days Qty: 60 RF: 0 Continued montelukast [Singulair] 10 mg Tablet 10 mg PO DAILY RF: 0 albuterol sulfate 90 mcg/actuation Hfa Aerosol Inhaler 2 puff INHALATION Q6H PRN (Reason: Wheezing) RF: 0 Dulera 100-5 mcg/actuation Hfa Aerosol Inhaler 2 puff INHALATION Q12H RF: 0 Stand-Alone Forms: [employer], Work/School Release (Inpt) Krames/Other Patient Handouts: Palsy [place], ED [place] Palsy Discharge Orders: Discharge Order (Routine); Ordered 11/12/18 Ordered By: Mavis Whittaker Admission Data Admit Date/Time: 11/09/18 15:07 Attending Provider: Mavis Whittaker Admit Provider: Mavis Whittaker Primary Care Provider: Rob Adnerson Other Providers: Mavis Whittaker ; Sina Bar ; Margaret Mcdowell ; Rob Green ; Margaret Thorpe ; Serge Cisneros ; Franklin Cheng Service: Medical Other Interventions: Discharge Summary Assessment (RN) Last Done: 11/12/18 15:45 DC Date/Time DO NOT enter until pt leaves facility: 11/12/18 16:00
[2018-11-15 01:01] LABS: 18KDIGG Band NONREACTIVE (NONREACTIVE); 23KDIGG Band NONREACTIVE (NONREACTIVE); 23KDIGM Band NONREACTIVE (NONREACTIVE); 28KDIGG Band NONREACTIVE (NONREACTIVE); 30KDIGG Band NONREACTIVE (NONREACTIVE); 39KDIGG Band NONREACTIVE (NONREACTIVE); 39KDIGM Band NONREACTIVE (NONREACTIVE); 41KDIGG Band NONREACTIVE (NONREACTIVE); 41KDIGM Band NONREACTIVE (NONREACTIVE); 45KDIGG Band NONREACTIVE (NONREACTIVE); 58KDIGG Band NONREACTIVE (NONREACTIVE); 66KDIGG Band NONREACTIVE (NONREACTIVE); 93KDIGG Band NONREACTIVE (NONREACTIVE); Lyme Antibodies, WB IgG NEGATIVE (NEGATIVE); Lyme Antibodies, WB IgM NEGATIVE (NEGATIVE)
[2018-11-20 05:23] LABS: HSV Type 1 DNA Not Detected (Not Detected); HSV Type 1&2 DNA Source CSF; HSV Type 2 DNA Not Detected (Not Detected); Lyme DNA Source CSF; Lyme IgG CSF NO BANDS DETECTED; Lyme IgM CSF NO BANDS DETECTED
== END 2018-11-12 16:00 | disposition home or self-care (01) | DRG 75 ==
LOC: ED 10:02 → 2S 15:07 → 4W 11-10 18:55
DX: A87.9 Viral meningitis, unspecified; J45.909 Unspecified asthma, uncomplicated; F17.200 Nicotine dependence, unspecified, uncomplicated; G51.0 Bell's palsy; B37.0 Candidal stomatitis; F12.90 Cannabis use, unspecified, uncomplicated